=== PATIENT | female | born 1955 | race Caucasian/White ===

== ENCOUNTER 2016-02-13 10:39 | Inpatient (IN) ==
--- NOTE | 2016-02-13 11:05 | EKG Report ---
Stationary ECG Study [facility] ER Test Date: 02/13/2016 10:53:03 AM Pat Name: NOELLE CASTAÑEDA Department: Room: Gender: F Dump Worker: : [id number] Requested by: Chavez Subramanian Order Number: [id number] Reading MD: TAVO FERGUSON Intervals [place] Rate: 88 P: 38 CT: 151 QRS: 29 QRSD: 110 T: 44 QT: 379 QTc: 425 Interpretive Statements SINUS RHYTHM LOW QRS VOLTAGE IN CHEST LEADS INCOMPLETE RIGHT BUNDLE BRANCH BLOCK Electronically Signed On 02-13-16 12:36:10 SAFETY MANAGER by TAVO FERGUSON [email or web address]
[2016-02-13] MEDS ORDERED: SODIUM CHLORIDE 0.9% 500 ML IV STA (12:15)
[2016-02-13 12:35] LABS: ABG Base Excess 0.2 MMOL/L (-2.5-2.5); ABG HCO3 23.6 MMOL/L (20-26); ABG Oxygen Saturation 94.1 % (95-100); ABG PH 7.447 (7.35-7.45); ABG PO2 69.3 MM HG (80-95); ABG TCO2 24.7 MMOL/L (23-27)
--- NOTE | 2016-02-13 13:02 | CT Report ---
History: Mental status changes. Confusion. Difficulty walking. Slurred speech Date: 02/13/2016 Study: CT head without contrast Comparison exam: CT head January 21, [address] sections were obtained through the head without IV contrast. Total DLP measures 1073.1 mGy*cm. The ventricles are midline in position without evidence of hydrocephalus. There is no mass or parenchymal hemorrhage. There is no gross CT evidence of acute cortical stroke. There is no extra-axial hematoma. There is no acute abnormality of the calvarium. The partially visualized paranasal sinuses are remarkable for a small fluid level in the left sphenoid sinus. The mastoid air cells are clear. Impression: Acute left sphenoid sinusitis. No acute intracranial abnormality compared to the previous study PROCEDURE INTERPRETED AT [facility] DEPARTMENT OF RADIOLOGY Final Report Signed by: Dr. Kimberlyn Carrillo
[2016-02-13 13:12] LABS: Basophils % 0.5 % (0.0-0.8); Eosinophils # 0.3 10*3/uL (0.0-0.87); Eosinophils % 3.5 % (0.00-10.9); Hematocrit 46.9 VOL% (35.7-47.0); Hemoglobin 15.6 GM/DL (12.0-16.0); Immature Granulocytes % 0.3 %; Immature Granulocytes Absolute 0.02 #; Lymphocytes % 25.4 % (21.3-54.2); Mean Corpuscular HGB Conc 33.3 GM/DL (32-36); Mean Corpuscular Hemoglobin 29 PG (27-34); Mean Corpuscular Volume 86.9 FL (87-102); Mean Platelet Volume 11.4 FL (9.6-12.0); Monocytes # 0.6 10*3/uL (0.11-0.8); Monocytes % 7.1 % (1.7-12.7); Neutrophils % 63.2 % (38.7-73.9); Platelet Count 176 10*3/uL (130-400); Red Cell Distribution Width 13.8 % (9.3-17.3); White Blood Count 7.9 10*3/uL (4.5-13.71)
--- NOTE | 2016-02-13 13:24 | XRay Report ---
History: Confusion, weakness, slurred speech. History of hypertension and coronary artery disease Date: 02/13/2016 Study: Chest x-ray single view portable Comparison exam: Chest x-ray August 23, 2015 The cardiac silhouette is upper normal in size. The mediastinal contours are stable in this patient status post prior median sternotomy. The pulmonary vasculature is not engorged. There is no gross pleural effusion. The lungs are well expanded and generally clear. The osseous structures are unchanged. Impression: No acute cardiopulmonary process PROCEDURE INTERPRETED AT [facility] DEPARTMENT OF RADIOLOGY Final Report Signed by: Dr. Kimberlyn Carrillo
[2016-02-13 13:26] LABS: Ammonia 16 UMOL/L (11-32)
[2016-02-13 13:48] LABS: Alanine Aminotransferase 34 U/L (13-56); Albumin 3.7 G/DL (3.4-5.0); Alkaline Phosphatase 162 U/L (45-117); Aspartate Amino Transferase 26 U/L (0-37); Blood Urea Nitrogen 24 MG/DL (7-18); Calcium 8.5 MG/DL (8.5-10.1); Glucose 187 MG/DL (74-106); Magnesium 2.1 MG/DL (1.8-2.4); Osmolality,Calculated 287.4 MOS/KG (273-304); Potassium 3.4 MMOL/L (3.5-5.1); Sodium 140 MMOL/L (136-145); Total Protein 8.8 G/DL (6.4-8.3); Troponin I Only < 0.015 NG/ML (0.00-0.045)
[2016-02-13 14:03] LABS: Apearance,Urine CLEAR (Clear); Bilirubin,Urine Negative (Negative); Blood, Urine Negative (Negative); Glucose,Urine (UA) >=500 mg/dL (Negative); Ketones,Urine Negative (Negative); Nitrite,Urine Negative (Negative); Protein,Urine Negative; RBC,Urine 2 /HPF (0-4); Squamous Epithelial Cell,Urine Occasional /HPF (0-10); Urine Color Yellow (Yellow); Urine Specific Gravity 1.033 (1.001-1.035); Urine Urobilinogen < 2.0 EU/DL (0.2-1.0); WBC,Urine 12 /HPF (0-6)
[2016-02-13 14:12] LABS: Barbiturates Screen,Urine Negative (Negative); Benzodiazepines Screen,Urine Negative (Negative); Cannabinoid Screen,Urine Negative (Negative); Opiate Screen,Urine Positive (Negative); Phencyclidine Screen,Urine Negative (Negative)
--- NOTE | 2016-02-13 15:27 | Emergency Department Note ---
Shravan Cottrell Jamie, am scribing for, and in the presence of, Argelia Delcid DO 12:13. Bhavin Cottrell Catherine, DO, personally performed the services described in this documentation, ascribed by Dewey Cheney in my presence, and it is both accurate and complete [phone] . Arrival - Arrival Chief Complaint: Neuro Stated Complaint: pt can't walk, out of head, poss medication ED Nursing Triage Note: C/O HAVING CONFUSION SINCE SUNDAY., PATIENT AWAKE ALERT TO PERSON TIME AND PLACE AT TIME OF TRIAGE, FAMILY STATES SHE IS TALKING OUT OF HER HEAD, STATES SHE IS HAVING DIFFICULTY WALKING , " I CAN NOT EVEN GET OUT OF BED" , STATES SHE IS JUST NOT HER SELF, PATIENT STATES SHE HAS BEEN SLURRED SPEEECH SINCE SUNDAY., PATIENT ANSWERING ALL QUESTIONS APPR. AT TIME OF TRIAGE, AND MOVING ALL EXT WITH FULL ROM Mode of Arrival: Wheelchair Limitations: No Limitations Source: Patient, RN Notes Reviewed Time Seen by Provider: 02/13/16 11:11 - History of Present Illness HPI Narrative: Patient is a 60 y/o white female who presents to the ED c/o confusion, weakness , and slurred speech. Patient states sxs onset 4 days ago after switching medication. She reports being switched to zonisamide and states sxs have been ongoing since taking new medication. Patient reports new meds as only thing she has done differently. She also notes stuttered speech, SOB, and not being able to stand to walk. also reports episodes of incontinence. Patient has no other complaints or sxs at time of exam. her last dose of the medication was and the symptoms have not worsened - even reported she was alittle better today. She reports feeling weak whens he walks , no falls or trauma , no headache , no chest pain or emesis. reports periods of cofusion / weakness when she walks / has had some blurry vision as well - all sympotms are intermittent. Onset (ago): day(s) (4) Consistency: constant Severity: moderate Severity scale (1-10): 4 Quality: other (really unable to describe) Allergies/Adverse Reactions: Allergies Allergy/AdvReac Type Severity Reaction Status Date / Time NSAIDS (Non-Steroidal Allergy Intermediate Abdominal Verified 02/13/16 10:46 Anti-Inflamma Pain Home Medications: Home Medications Medication Instructions Recorded Confirmed Type Amitriptyline HCl 100 mg PO BEDTIME 02/13/16 02/13/16 History Canagliflozin [Invokana] 300 mg PO DAILY 02/13/16 02/13/16 History Carvedilol [Coreg] 25 mg PO BID 02/13/16 02/13/16 History Escitalopram [Lexapro] 20 mg PO DAILY 02/13/16 02/13/16 History Furosemide Tab [Lasix Tab] 40 mg PO DAILY 02/13/16 02/13/16 History Losartan Potassium 25 mg PO DAILY 02/13/16 02/13/16 History Pregabalin [Lyrica] 75 mg PO TID 02/13/16 02/13/16 History Ranitidine HCl [Zantac] 300 mg PO BEDTIME 02/13/16 02/13/16 History Rosuvastatin [Crestor] 20 mg PO DAILY 02/13/16 02/13/16 History Zonisamide 200 mg PO BEDTIME 02/13/16 02/13/16 History clonazePAM [Clonazepam] 1 mg PO BEDTIME 02/13/16 02/13/16 History hydrOXYzine HCL TAB [Atarax Tab] 50 mg PO BID 02/13/16 02/13/16 History metFORMIN [Glucophage] 500 mg PO BID W/MEALS 02/13/16 02/13/16 History Review of System - Review of System 12 point system: reviewed and no additional remarkable complaints except as stated - Review of System Constitutional: Present: weakness. Absent: chills, diaphoresis, fever Eyes: Absent: vision change Head/Ears/Nose/Throat: Absent: earache, nasal drainage, sore throat Respiratory: Absent: cough, wheezing Cardiovascular: Absent: chest pain Gastrointestinal: Absent: abdominal pain, nausea, vomiting, diarrhea, constipation Musculoskeletal: Present: other (has chronic joint pain due to fibromyalgia). Absent: joint swelling Skin: Absent: rash, change in color Neurological: Present: weakness, confusion, abnormal gait. Absent: headache, numbness, paresthesias, vertigo Psychiatric: Absent: anxiety, depression Hematological/Lymphatic: Absent: easy bleeding, easy bruising Medical,Surgical,& Family Hx - Medical History Cardio: History of: Cardiac Dysrhythmia (unknown tachycardia), CHF, CAD, Hypertension Psychological: History of: Anxiety Disorders Neurology: History of: Migraine HEENT: History of: Ear Problem (hard of hearing wears hearing aids) Endocrine: History of: Diabetes Mellitus (IDDM) (cbg 336 this am) Rheumatology: History of;: Fibromyalgia Gastrointestinal: History of: GI Problems (ulcers) Musculoskeletal: History of: Musculoskeletal Problems (kang cyst rt knee) - Surgical History Cardiac Surgeries: Sugical HX of: Cardiac Catheterization (stent in past 10 years) Abdominal Surgeries: Surgical HX of: Appendectomy Reproductive Surgeries: Surgical HX of;: Section, Hysterectomy Orthopedic Surgeries: Surgical HX of;: Orthopedic Surgery (carpal tunnel) - Family History Family History: Reports;: Family Diabetes (mother, aunts, sister), Family Heart Disease (mother (htn), grandfather ([place])) - Social History Smoking Status: Light tobacco smoker Frequency of Alcohol Use: None Type of Drug Use: None Marital Status: Lives With:: Spouse Functional capacity: independent ambulation Exam Vital Signs: Vital Signs Temperature 96.0 F L 02/13/16 11:04 Pulse Rate 86 02/13/16 13:00 Respiratory Rate 18 02/13/16 13:00 Blood Pressure 156/93 02/13/16 13:00 O2 Sat by Pulse Oximetry 98 02/13/16 13:00 - General General appearance: alert, in no apparent distress - Head Head exam: Present: atraumatic, normocephalic, normal inspection - Eye Eye exam: Present: normal appearance, PERRL, EOMI. Absent: conjunctival injection, nystagmus, periorbital tenderness - ENT ENT exam: Present: normal exam, normal oropharynx, mucous membranes moist, TM's normal bilaterally, normal external ear exam - Neck Neck exam: Present: normal inspection, full ROM. Absent: tenderness, meningismus - Chest Chest inspection: Present: normal inspection, symmetric chest wall rise - Respiratory Respiratory exam: Present: normal lung sounds bilaterally. Absent: accessory muscle use, prolonged expiratory phase, respiratory distress - Cardiovascular Cardiovascular exam: Present: regular rate, normal rhythm, normal heart sounds - Abdominal Exam Abdominal exam: Present: soft, normal bowel sounds. Absent: distention, tenderness, guarding, rebound, diminished bowel sounds - Extremities Exam Extremities exam: Present: normal inspection, full ROM - Back Exam Back exam: Present: normal inspection, full ROM - Neurological Exam Neurological exam: Present: alert, oriented X3, CN II-XII intact, other (no focal findigns on her nerology exam at this time) - Psychiatric Psychiatric exam: Present: normal affect, normal mood - Skin Skin exam: Present: warm, dry, intact, normal color Course Course Narrative: she is stable and has not worsened during the er visit - still has some slight confusion. She was able to ambulate to the rest room with assitance here. - Consultations Consultation #1: Dr. Stevens - agrees with observation for further neurology evaluation Time: 15:25 Results - Labs CBC & BMP: 02/13/16 12:52 02/13/16 12:52 Lab Results: I have reviewed the patients labs - EKG EKG results: interpreted by SHALONDA WNL - Impressions no acute findings - Diagnostic Findings Procedure: CT - chest: report reviewed by me (negative), CT: report reviewed by me (head-sinusitis - no acute process) Disposition Clinical Impression: Altered mental status, unspecified, Adverse drug reaction Case discussed with: patient Disposition: Still a Patient Condition: Stable
--- NOTE | 2016-02-13 15:37 | Hospitalist History & Physical ---
Assessment and Plan (1) Altered mental status, unspecified Status: Acute Assessment and plan: Most probably a medication side effect from the zonisamide, which I will discontinue. She will be seen by Neurology tomorrow. Current Visit: Yes (2) Adverse drug reaction Status: Acute Assessment and plan: See above Current Visit: Yes (3) Diabetes mellitus type 1 Status: Acute Assessment and plan: Continue her glargine. Accuchecks with SSI coverage. Current Visit: Yes Qualifiers: Diabetes mellitus complication status: without complication Qualified Code( s): E10.9 - Type 1 diabetes mellitus without complications (4) Sinusitis, acute, sphenoidal Status: Acute Assessment and plan: Start cephalexin. Current Visit: Yes (5) Coronary artery disease Status: Chronic Assessment and plan: She is s/p CABG in August,, Continue present medications. Current Visit: No Qualifiers: Coronary Disease-Associated Artery/Lesion type: [place] artery [place] vs. transplanted heart: [place] heart Associated angina: without angina Qualified Code(s): I25.10 - Atherosclerotic heart disease of [place] coronary artery without angina pectoris (6) Fibromyalgia Status: Chronic Assessment and plan: Stable Current Visit: No (7) Hypertension Status: Chronic Assessment and plan: Stable Current Visit: No Qualifiers: Hypertension type: essential hypertension Qualified Code(s): I10 - Essential (primary) hypertension History of Present Illness Chief complaint: Confusion and weakness History of present illness: Ms. Herrera is a 60 year old female with multiple medical problems incuding fibromyalgia, headaches, Type 2 Diabetes Mellitus, CAD s/p CABG surgery. She was begun one week ago on zonisamide for her headcahes. 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 She has not been experiencing chest pain, dyspnea, cough, fever, shaking chills, or seizures. In the ED, she underwent a CT scan of the head showing acute sphenoid sinusitis and no intracranial abnormalities. Home Medications Medication Instructions Recorded Confirmed Type Amitriptyline HCl 100 mg PO BEDTIME 02/13/16 02/13/16 History Canagliflozin [Invokana] 300 mg PO DAILY 02/13/16 02/13/16 History Carvedilol [Coreg] 25 mg PO BID 02/13/16 02/13/16 History Escitalopram [Lexapro] 20 mg PO DAILY 02/13/16 02/13/16 History Furosemide Tab [Lasix Tab] 40 mg PO DAILY 02/13/16 02/13/16 History Losartan Potassium 25 mg PO DAILY 02/13/16 02/13/16 History Pregabalin [Lyrica] 75 mg PO TID 02/13/16 02/13/16 History Ranitidine HCl [Zantac] 300 mg PO BEDTIME 02/13/16 02/13/16 History Rosuvastatin [Crestor] 20 mg PO DAILY 02/13/16 02/13/16 History Zonisamide 200 mg PO BEDTIME 02/13/16 02/13/16 History clonazePAM [Clonazepam] 1 mg PO BEDTIME 02/13/16 02/13/16 History hydrOXYzine HCL TAB [Atarax Tab] 50 mg PO BID 02/13/16 02/13/16 History metFORMIN [Glucophage] 500 mg PO BID W/MEALS 02/13/16 02/13/16 History Allergies Allergy/AdvReac Type Severity Reaction Status Date / Time NSAIDS (Non-Steroidal Allergy Intermediate Abdominal Verified 02/13/16 10:46 Anti-Inflamma Pain Medical,Surgical,& Family Hx - Medical History Cardio: History of: Cardiac Dysrhythmia (unknown tachycardia), CHF, CAD, Hypertension Psychological: History of: Anxiety Disorders Neurology: History of: Migraine HEENT: History of: Ear Problem (hard of hearing wears hearing aids) Endocrine: History of: Diabetes Mellitus (IDDM) (cbg 336 this am) Rheumatology: History of;: Fibromyalgia Gastrointestinal: History of: GI Problems (ulcers) Musculoskeletal: History of: Musculoskeletal Problems (kang cyst rt knee) - Surgical History Cardiac Surgeries: Sugical HX of: Cardiac Catheterization (stent in past 10 years) Abdominal Surgeries: Surgical HX of: Appendectomy Reproductive Surgeries: Surgical HX of;: Section, Hysterectomy Orthopedic Surgeries: Surgical HX of;: Orthopedic Surgery (carpal tunnel) - Family History Family History: Reports;: Family Diabetes (mother, aunts, sister), Family Heart Disease (mother (htn), grandfather ([place])) - Social History Smoking Status: Light tobacco smoker Frequency of Alcohol Use: None Type of Drug Use: None Marital Status: Lives With:: Spouse Functional capacity: independent ambulation 12 point system: reviewed and no additional remarkable complaints except as stated Exam - Constitutional Vitals: Period Temp Pulse Resp BP Sys/Elizabeth Pulse Ox Last 24 Hr 96.0 F-96.0 F 86-90 16-18 124-162/77-98 96-100 General appearance: no acute distress, over weight - Head Head exam: Present: normal inspection, normocephalic - Eye Pupils: Present: JACINDA - Neck Neck exam: Present: normal inspection - Respiratory Respiratory exam: Present: clear to auscultation bilaterally - Cardiovascular Cardiovascular exam: Present: regular rate and rhythm - GI/Abdominal GI/Abdominal exam: Present: normal bowel sounds, soft, other (nontender) - Extremities Exam Extremities exam: Present: normal inspection - Neurological Exam Neurological exam: Present: alert, oriented X3, CN II-XII intact, other (no gross motor or sensory deficits) - Psychiatric Psychiatric exam: Present: normal affect, normal mood - Skin Skin exam: Present: normal color Results - Labs CBC & BMP: 02/13/16 12:52 02/13/16 12:52
[2016-02-13] MEDS ORDERED: ONDANSETRON 4 MG/2 ML VIAL IV PRN (15:47)
[2016-02-13] MEDS ORDERED: BISACODYL 5 MG TABLET PO PRN (15:47)
[2016-02-13] MEDS ORDERED: GLUCAGON 1 MG VIAL IM PRN (15:47)
[2016-02-13] MEDS ORDERED: DEXTROSE 50% 25 GM/50 ML VIAL IV PRN (15:47)
[2016-02-13] MEDS ORDERED: traZODone 50 MG TABLET PO PRN (15:47)
[2016-02-13] MEDS: INSULIN REGULAR 100 UNIT/ML SUBCUT SCH ×3 (18:15→21:46)
[2016-02-13] MEDS: metFORMIN 500 MG TABLET PO SCH (18:18)
[2016-02-13] MEDS: cephALEXin 500 MG CAPSULE PO SCH (18:18)
[2016-02-13] MEDS: ENOXAPARIN 40 MG/0.4 ML SYRINGE SUBCUT SCH (18:19)
[2016-02-13] MEDS: AMITRIPTYLINE 100 MG TABLET PO SCH (21:46)
[2016-02-13] MEDS: hydrOXYzine HCL 25 MG TABLET PO SCH (21:46)
[2016-02-13] MEDS: CARVEDILOL 25 MG TABLET PO SCH (21:46)
[2016-02-13] MEDS: clonazePAM 0.5 MG TABLET PO SCH (21:47)
[2016-02-13] MEDS: INSULIN GLARGINE 100 UNIT/ML SUBCUT SCH (21:48)
[2016-02-13] MEDS: FAMOTIDINE 20 MG TABLET PO SCH (21:48)
[2016-02-13] MEDS: ZONISAMIDE 100 MG CAPSULE PO SCH ×2 (21:49→21:54)
[2016-02-13] MEDS: PREGABALIN 75 MG CAPSULE PO SCH (21:49)
[2016-02-14] MEDS: cephALEXin 500 MG CAPSULE PO SCH ×4 (03:12→17:16)
[2016-02-14] MEDS ORDERED: NON-FORMULARY MEDICATION (Canagliflozin [Invokana] 300 MG) PO SCH (09:00)
--- NOTE | 2016-02-14 09:20 | Hospitalist Progress Note ---
Assessment and Plan (1) Altered mental status, unspecified Status: Acute Assessment and plan: Most probably a medication side effect from the zonisamide, which has been discontinued. She will be seen by Neurology today. Current Visit: Yes (2) Adverse drug reaction Status: Acute Assessment and plan: See above Current Visit: Yes (3) Diabetes mellitus type 1 Status: Acute Assessment and plan: Continue her glargine. Accuchecks with SSI coverage. Current Visit: Yes Qualifiers: Diabetes mellitus complication status: without complication Qualified Code( s): E10.9 - Type 1 diabetes mellitus without complications (4) Sinusitis, acute, sphenoidal Status: Acute Assessment and plan: She is being treated with cephalexin 500 mg PO Q6H. Current Visit: Yes (5) Coronary artery disease Status: Chronic Assessment and plan: She is s/p CABG in August,, Continue present medications. Current Visit: No Qualifiers: Coronary Disease-Associated Artery/Lesion type: [place] artery [place] vs. transplanted heart: [place] heart Associated angina: without angina Qualified Code(s): I25.10 - Atherosclerotic heart disease of [place] coronary artery without angina pectoris (6) Fibromyalgia Status: Chronic Assessment and plan: Stable Current Visit: No (7) Hypertension Status: Chronic Assessment and plan: Stable. BP 118/76. Current Visit: No Qualifiers: Hypertension type: essential hypertension Qualified Code(s): I10 - Essential (primary) hypertension Hospitalist: Subjective Interval history: She has been taking her own amitryptiline in addition to the prescribed medication dispensed by the nurses. I strongly admonished her and her not to do so. Exam - Constitutional Vitals: Period Temp Pulse Resp BP Sys/Elizabeth Pulse Ox Last 24 Hr 97.4 F-99.4 F 86-132 18-24 84-154/54-89 95-100 General appearance: no acute distress - Head Head exam: Present: normal inspection - Neck Neck exam: Present: normal inspection - Respiratory Respiratory exam: Present: clear to auscultation bilaterally - Cardiovascular Cardiovascular exam: Present: regular rate and rhythm - GI/Abdominal GI/Abdominal exam: Present: normal bowel sounds, soft, other (nontender) - Extremities Exam Extremities exam: Present: normal inspection - Neurological Exam Neurological exam: Present: alert, oriented X3 - Psychiatric Psychiatric exam: Present: normal affect - Skin Skin exam: Present: normal color Results - Labs CBC & BMP: 02/13/16 12:52 02/13/16 12:52 Specialty Discharge - Follow Up or Referrals - Discharge Medications No Action Rosuvastatin [Crestor] 20 mg PO DAILY Pregabalin [Lyrica] 75 mg PO TID clonazePAM [Clonazepam] 1 mg PO BEDTIME Furosemide Tab [Lasix Tab] 40 mg PO DAILY Carvedilol [Coreg] 25 mg PO BID Ranitidine HCl [Zantac] 300 mg PO BEDTIME Canagliflozin [Invokana] 300 mg PO DAILY Zonisamide 200 mg PO BEDTIME Losartan Potassium 25 mg PO DAILY HYDROcodone/ACETAMIN 10-325 [[place] 10-325] 1 tablet PO Q6H PRN PRN Reason: Pain Insulin Glargine [Lantus] 80 unit SUBCUT BEDTIME hydrOXYzine HCL TAB [Atarax Tab] 50 mg PO BID metFORMIN [Glucophage] 500 mg PO BID W/MEALS Amitriptyline HCl 100 mg PO BEDTIME Escitalopram [Lexapro] 20 mg PO DAILY Insulin Regular [HumuLIN R] 10 unit SUBCUT TID W/MEALS
[2016-02-14] MEDS: INSULIN REGULAR 100 UNIT/ML SUBCUT SCH ×7 (09:53→21:33)
[2016-02-14] MEDS: FUROSEMIDE 40 MG TABLET PO SCH (09:56)
[2016-02-14] MEDS: hydrOXYzine HCL 25 MG TABLET PO SCH ×2 (09:56→21:31)
[2016-02-14] MEDS: LOSARTAN 25 MG TABLET PO SCH (09:56)
[2016-02-14] MEDS: ESCITALOPRAM 10 MG TABLET PO SCH (09:56)
[2016-02-14] MEDS: ROSUVASTATIN 20 MG TABLET PO SCH (09:56)
[2016-02-14] MEDS: metFORMIN 500 MG TABLET PO SCH ×2 (09:56→16:22)
[2016-02-14] MEDS: CARVEDILOL 25 MG TABLET PO SCH ×2 (09:57→21:32)
[2016-02-14] MEDS: PREGABALIN 75 MG CAPSULE PO SCH ×3 (09:57→21:51)
[2016-02-14] MEDS: PANTOPRAZOLE 40 MG TABLET PO SCH (09:57)
--- NOTE | 2016-02-14 14:28 | Magnetic Resonance Report ---
Exam: MR head/brain wo con Date: 02/14/2016 11:46 AM Comparison: 12/24/2010, CT brain 02/13/2016 Indication: Alteration of consciousness Technique: Multiple acquisitions were obtained including sagittal T1, coronal T2, and axial ADC, diffusion, FLAIR, T2, GRE, and T1 scans without contrast only. Scans were obtained on an open 1.2 Michela magnet. Findings: The ventricles are normal in size with no midline displacement. The pituitary has a normal appearance and the cerebellar tonsils are normal in their location. No acute infarction on the diffusion scans. No evidence of hemorrhage, mass, or extracerebral collection. Enlarged perivascular spaces are noted which represent a normal variant. Minimal cerebral atrophy. Small air-fluid level in the left sphenoid sinus with 12 mm retention cyst in the floor the left maxillary sinus. No acute findings in the orbits, temporal bones, or [place] of [place]. Impression: No acute intracranial pathology identified. Minimal atrophy. Enlarged perivascular spaces which represent a normal variant. Minimal sinusitis. PROCEDURE INTERPRETED AT [facility] DEPARTMENT OF RADIOLOGY Final Report Signed by: Dr. Bonny Cooper
--- NOTE | 2016-02-14 15:48 | Neurology Consult Note ---
History of Present Illness History of present illness: Ms. Herrera is a 60 year old right-handed white lady with past medical history significant for multiple medical problems incuding fibromyalgia, chronic migraine headaches, Type 2 Diabetes Mellitus, CAD s/p CABG surgery. She was begun one week ago on zonisamide for her headcahes prevention. 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 She has not been experiencing chest pain, dyspnea, cough, fever, shaking chills, or seizures. In the ED, she underwent a CT scan of the head showing acute sphenoid sinusitis and no intracranial abnormalities. Zonegran has been stopped and she seems to be doing much better. Home Medications Medication Instructions Recorded Confirmed Type Amitriptyline HCl 100 mg PO BEDTIME 02/13/16 02/13/16 History Canagliflozin [Invokana] 300 mg PO DAILY 02/13/16 02/13/16 History Carvedilol [Coreg] 25 mg PO BID 02/13/16 02/13/16 History Escitalopram [Lexapro] 20 mg PO DAILY 02/13/16 02/13/16 History Furosemide Tab [Lasix Tab] 40 mg PO DAILY 02/13/16 02/13/16 History HYDROcodone/ACETAMIN 10-325 [[place] 1 tablet PO Q6H PRN 02/13/16 02/13/16 History 10-325] Insulin Glargine [Lantus] 80 unit SUBCUT BEDTIME 02/13/16 02/13/16 History Insulin Regular [HumuLIN R] 10 unit SUBCUT TID W/MEALS 02/13/16 02/13/16 History Losartan Potassium 25 mg PO DAILY 02/13/16 02/13/16 History Pregabalin [Lyrica] 75 mg PO TID 02/13/16 02/13/16 History Ranitidine HCl [Zantac] 300 mg PO BEDTIME 02/13/16 02/13/16 History Rosuvastatin [Crestor] 20 mg PO DAILY 02/13/16 02/13/16 History Zonisamide 200 mg PO BEDTIME 02/13/16 02/13/16 History clonazePAM [Clonazepam] 1 mg PO BEDTIME 02/13/16 02/13/16 History hydrOXYzine HCL TAB [Atarax Tab] 50 mg PO BID 02/13/16 02/13/16 History metFORMIN [Glucophage] 500 mg PO BID W/MEALS 02/13/16 02/13/16 History Allergies Allergy/AdvReac Type Severity Reaction Status Date / Time NSAIDS (Non-Steroidal Allergy Intermediate Abdominal Verified 02/13/16 10:46 Anti-Inflamma Pain 12 point system: reviewed and no additional remarkable complaints except as stated Medical,Surgical,& Family Hx - Medical History Cardio: History of: Cardiac Dysrhythmia (unknown tachycardia), CHF, CAD, Hypertension Psychological: History of: Anxiety Disorders Neurology: History of: Migraine HEENT: History of: Ear Problem (hard of hearing wears hearing aids) Endocrine: History of: Diabetes Mellitus (IDDM) (cbg 336 this am) Rheumatology: History of;: Fibromyalgia Gastrointestinal: History of: GI Problems (ulcers) Musculoskeletal: History of: Musculoskeletal Problems (kang cyst rt knee) - Surgical History Cardiac Surgeries: Sugical HX of: Cardiac Catheterization (stent in past 10 years) Abdominal Surgeries: Surgical HX of: Appendectomy Reproductive Surgeries: Surgical HX of;: Section, Hysterectomy Orthopedic Surgeries: Surgical HX of;: Orthopedic Surgery (carpal tunnel) - Family History Family History: Reports;: Family Diabetes (mother, aunts, sister), Family Heart Disease (mother (htn), grandfather ([place])) - Social History Smoking Status: Light tobacco smoker Frequency of Alcohol Use: None Type of Drug Use: None Exam - Constitutional Vitals: Period Temp Pulse Resp BP Sys/Elizabeth Pulse Ox Last 24 Hr 97.4 F-99.4 F 84-132 18-24 84-154/54-89 95-100 Exam: GENERAL: Patient is in no acute distress. NECK: Neck is supple. There is no JVD. No carotid bruits present. No thyroid masses. CVS: First and second heart sounds are normal. There is no S3 present. Regular rate and rhythm. RESPIRATORY: Lungs are clear to auscultation without any rales or rhonchi. ABDOMEN: Soft and non-tender. Bowel sounds are present. There is no hepatosplenomegaly. EXT: There is no palpable edema. Peripheral pulses are present. Skin: No rashes Central Nervous system: General: Alert, awake and Oriented x 3 Speech: Fluent Comprehension: Intact and normal Facial expressions: Normal Cranial Nerves: CN1/Olfactory: Normal CN II/ Optic: Normal, Visual Mahmood unreliable CN III, and : JACINDA & EOMI CN V: Normal & intact CN VII: face is symmetric CNVIII: Normal CN XI/X/XI/XII: Intact and Normal Motor: Bulk and Tone is normal. Strength in the right 5/5 Strength in the left 5/5 Sensory: Grossly intact for all the modalities of PP, LT and temp sense Reflexes: 1+ and symmetrical Cerebellar function: Normal finger to nose and heel to gamez testing. Gait: Normal heel to heel and toe to toe and tandem walk. Results - Labs CBC & BMP: 02/13/16 12:52 02/13/16 12:52 Assessment and Plan (1) Chronic migraine Status: Acute Assessment and plan: Agree to discontinue Zonegran Trial of Depakote ER 250 mg daily Advised to see Dr. Rain in [place] in 1-2 weeks Okay to go home from neuro standpoint Thank you for the consult Current Visit: Yes Specialty Discharge - Follow Up or Referrals - Discharge Medications No Action Rosuvastatin [Crestor] 20 mg PO DAILY Pregabalin [Lyrica] 75 mg PO TID clonazePAM [Clonazepam] 1 mg PO BEDTIME Furosemide Tab [Lasix Tab] 40 mg PO DAILY Carvedilol [Coreg] 25 mg PO BID Ranitidine HCl [Zantac] 300 mg PO BEDTIME Canagliflozin [Invokana] 300 mg PO DAILY Zonisamide 200 mg PO BEDTIME Losartan Potassium 25 mg PO DAILY HYDROcodone/ACETAMIN 10-325 [[place] 10-325] 1 tablet PO Q6H PRN PRN Reason: Pain Insulin Glargine [Lantus] 80 unit SUBCUT BEDTIME hydrOXYzine HCL TAB [Atarax Tab] 50 mg PO BID metFORMIN [Glucophage] 500 mg PO BID W/MEALS Amitriptyline HCl 100 mg PO BEDTIME Escitalopram [Lexapro] 20 mg PO DAILY Insulin Regular [HumuLIN R] 10 unit SUBCUT TID W/MEALS
[2016-02-14] MEDS: FAMOTIDINE 20 MG TABLET PO SCH (21:32)
[2016-02-14] MEDS: ENOXAPARIN 40 MG/0.4 ML SYRINGE SUBCUT SCH (21:32)
[2016-02-14] MEDS: clonazePAM 0.5 MG TABLET PO SCH (21:33)
[2016-02-14] MEDS: INSULIN GLARGINE 100 UNIT/ML SUBCUT SCH (21:34)
[2016-02-14] MEDS: AMITRIPTYLINE 100 MG TABLET PO SCH (21:51)
[2016-02-14] MEDS: ZONISAMIDE 100 MG CAPSULE PO SCH (21:54)
[2016-02-15] MEDS: cephALEXin 500 MG CAPSULE PO SCH ×2 (01:47→06:34)
[2016-02-15 08:42] VITALS: BP 154/77
--- NOTE | 2016-02-15 09:11 | Discharge Summary ---
Hospital Course - Hospital Course Hospital Course: Ms. Herrera was hospitalized with an adverse reaction to zonisamide, which had been prescribed for migraine headaches. At the time of admission, she was very weak and unsteady. She was seen in consultation by Dr. Chowdhury of Neurology. The medication was stopped. CT scan and MRI of the brain showed no acute abnormalities. She was found to have a UTI for which she was treated with cephalexin. At the time of discharge, she felt much better and was eager to go home. Diagnosis - Discharge Diagnosis (1) Altered mental status, unspecified Status: Acute (2) Adverse drug reaction Status: Acute (3) Diabetes mellitus type 1 Status: Acute (4) Sinusitis, acute, sphenoidal Status: Acute (5) Coronary artery disease Status: Chronic (6) Fibromyalgia Status: Chronic (7) Hypertension Status: Chronic Specialty Discharge - Follow Up or Referrals - Discharge Medications No Action Rosuvastatin [Crestor] 20 mg PO DAILY Pregabalin [Lyrica] 75 mg PO TID clonazePAM [Clonazepam] 1 mg PO BEDTIME Furosemide Tab [Lasix Tab] 40 mg PO DAILY Carvedilol [Coreg] 25 mg PO BID Ranitidine HCl [Zantac] 300 mg PO BEDTIME Canagliflozin [Invokana] 300 mg PO DAILY Zonisamide 200 mg PO BEDTIME Losartan Potassium 25 mg PO DAILY HYDROcodone/ACETAMIN 10-325 [[place] 10-325] 1 tablet PO Q6H PRN PRN Reason: Pain Insulin Glargine [Lantus] 80 unit SUBCUT BEDTIME hydrOXYzine HCL TAB [Atarax Tab] 50 mg PO BID metFORMIN [Glucophage] 500 mg PO BID W/MEALS Amitriptyline HCl 100 mg PO BEDTIME Escitalopram [Lexapro] 20 mg PO DAILY Insulin Regular [HumuLIN R] 10 unit SUBCUT TID W/MEALS Discharge Plan - Discharge Data Condition at Discharge: Stable Discharge Diet: advance to your usual diet Activity: resume usual activities as tolerated Hygiene: no restrictions - Discharge Medications New cephALEXin [Keflex] 500 mg PO Q6HR #16 capsule Continue Rosuvastatin [Crestor] 20 mg PO DAILY Pregabalin [Lyrica] 75 mg PO TID clonazePAM [Clonazepam] 1 mg PO BEDTIME Furosemide Tab [Lasix Tab] 40 mg PO DAILY Carvedilol [Coreg] 25 mg PO BID Ranitidine HCl [Zantac Tab] 300 mg PO BEDTIME Canagliflozin [Invokana] 300 mg PO DAILY Losartan Potassium 25 mg PO DAILY HYDROcodone/ACETAMIN 10-325 [[place] 10-325] 1 tablet PO Q6H PRN PRN Reason: Pain Insulin Glargine [Lantus] 80 unit SUBCUT BEDTIME hydrOXYzine HCL TAB [Atarax Tab] 50 mg PO BID metFORMIN [Glucophage] 500 mg PO BID W/MEALS Amitriptyline HCl 100 mg PO BEDTIME Escitalopram [Lexapro] 20 mg PO DAILY Insulin Regular [HumuLIN R] 10 unit SUBCUT TID W/MEALS Discontinued Zonisamide 200 mg PO BEDTIME - Follow Up or Referral - Forms/Instructions Exam - Constitutional Vitals: Period Temp Pulse Resp BP Sys/Elizabeth Pulse Ox Last 24 Hr 98.1 F-98.7 F 79-90 20-20 104-154/53-77 92-97 General appearance: no acute distress - Head Head exam: Present: normal inspection - Neck Neck exam: Present: normal inspection - Respiratory Respiratory exam: Present: clear to auscultation bilaterally - Cardiovascular Cardiovascular exam: Present: regular rate and rhythm - GI/Abdominal GI/Abdominal exam: Present: normal bowel sounds, soft, other (nontender) - Extremities Exam Extremities exam: Present: normal inspection - Skin Skin exam: Present: normal color Discharge Results Labs on day of discharge: Labs from last 24 hours 02/15/16 02/14/16 02/14/16 07:23 18:10 15:11 POC Glucose 150 H 191 H 219 H 02/14/16 11:22 POC Glucose 235 H DS: Provider Date of admission: 02/13/16 15:54 Primary care physician: Alex Leavitt Attending physician on admission: Guido Monte Consults: 02/13/16 17:18 Consult to Pharmacy [CONS] Routine Reason for Pharmacy Consult: Adjust Meds Renal Funct Discharging clinician: Guido Monte Expected date of discharge: 02/15/16
[2016-02-15] MEDS: INSULIN REGULAR 100 UNIT/ML SUBCUT SCH ×2 (09:26)
[2016-02-15] MEDS: LOSARTAN 25 MG TABLET PO SCH (09:30)
[2016-02-15] MEDS: metFORMIN 500 MG TABLET PO SCH (09:30)
[2016-02-15] MEDS: ESCITALOPRAM 10 MG TABLET PO SCH (09:30)
[2016-02-15] MEDS: PREGABALIN 75 MG CAPSULE PO SCH (09:30)
[2016-02-15] MEDS: CARVEDILOL 25 MG TABLET PO SCH (09:30)
[2016-02-15] MEDS: PANTOPRAZOLE 40 MG TABLET PO SCH (09:31)
[2016-02-15] MEDS: ROSUVASTATIN 20 MG TABLET PO SCH (09:31)
[2016-02-15] MEDS: FUROSEMIDE 40 MG TABLET PO SCH (09:31)
[2016-02-15] MEDS: hydrOXYzine HCL 25 MG TABLET PO SCH (09:31)
== END 2016-02-15 10:22 | disposition home or self-care (01) | DRG 948 ==
LOC: N.ED 10:39 → N.EDINP 15:54 → N.2E 16:59

== ENCOUNTER 2016-06-27 19:02 | Observation (INO) ==
[2016-06-27] MEDS ORDERED: SODIUM CHLORIDE 0.9% 500 ML IV STA (19:55)
[2016-06-27] MEDS ORDERED: ONDANSETRON 4 MG/2 ML VIAL IV STA (19:55)
[2016-06-27] MEDS ORDERED: HYDROmorphone 2 MG/1 ML VIAL IV STA (19:55)
[2016-06-27] MEDS ORDERED: HYDROmorphone 2 MG/1 ML VIAL ONE (20:03)
[2016-06-27] MEDS ORDERED: ONDANSETRON 4 MG/2 ML VIAL ONE (20:03)
[2016-06-27 20:05] LABS: Basophils # 0.1 10*3/uL (0.0-0.2); Basophils % 0.9 % (0.0-0.8); Eosinophils # 0.3 10*3/uL (0.0-0.87); Eosinophils % 3.3 % (0.00-10.9); Hematocrit 43.1 VOL% (35.7-47.0); Hemoglobin 14.7 GM/DL (12.0-16.0); Immature Granulocytes % 0.5 %; Immature Granulocytes Absolute 0.04 #; Lymphocytes # 3.2 10*3/uL (1.4-4.0); Lymphocytes % 38.9 % (21.3-54.2); Mean Corpuscular HGB Conc 34.1 GM/DL (32-36); Mean Corpuscular Hemoglobin 29 PG (27-34); Mean Corpuscular Volume 86.2 FL (87-102); Mean Platelet Volume 12.2 FL (9.6-12.0); Monocytes # 1.1 10*3/uL (0.11-0.8); Monocytes % 12.9 % (1.7-12.7); Neutrophils # 3.6 10*3/uL (1.4-7.4); Neutrophils % 43.5 % (38.7-73.9); Platelet Count 196 T/CUMM (130-400); Red Cell Distribution Width 14.2 % (9.3-17.3); White Blood Count 8.2 T/CUMM (4-12)
--- NOTE | 2016-06-27 20:25 | Emergency Department Note ---
Luis Felipe Cottrell Manpreet, am scribing for, and in the presence of, Chavez De Luna MD 19:59. Annamarie Cottrell Charles R, MD, personally performed the services described in this documentation, ascribed by Jose Guadalupe Briscoe in my presence, and it is both accurate and complete . Arrival - Arrival Chief Complaint: Abdominal / Flank Pain Stated Complaint: Pain in right lower back ED Nursing Triage Note: C/O Right flank pain. Onset this morning upon waking. Reports taking her prescribed pain meds that she uses for fibromyalgia without any relief in the flank pain. Pt denies urinary s/s. Pt states that she has had this kind of pain before and it was pyelonephritis. Denies fever. Mode of Arrival: Ambulatory Limitations: No Limitations Source: Patient Time Seen by Provider: 06/27/16 19:28 - History of Present Illness HPI Narrative: Pt is a 60 y/o female, with PMHx of IDDM, HTN, CHF, CAD, and cardiac catheterization, who presents to the ED with CC of bilateral flank pain that started this morning when she woke up. Pt reports of more pain on the right side and dysuria, but denies any recent constipation. This pain is similar to a previous episode of pain in her flanks and was told of having infection of the kidney. Dr. Alex Leavitt is her PCP and Dr. Duarte is her finance professional. Pt also reports of elevated sugar levels recently due to her diet. No other pains/ complaints reported to ED. Onset (ago): hour(s) Consistency: constant Severity: moderate Severity scale (1-10): 4 Quality: cramping Date of Last Menstrual Period: Hysterectomy Allergies/Adverse Reactions: Allergies Allergy/AdvReac Type Severity Reaction Status Date / Time NSAIDS (Non-Steroidal Allergy Intermediate Abdominal Verified 02/13/16 10:46 Anti-Inflamma Pain Home Medications: Home Medications Medication Instructions Recorded Confirmed Type Amitriptyline HCl 100 mg PO BEDTIME 02/13/16 06/27/16 History Canagliflozin [Invokana] 300 mg PO DAILY 02/13/16 06/27/16 History Carvedilol [Coreg] 25 mg PO BID 02/13/16 06/27/16 History Furosemide Tab [Lasix Tab] 40 mg PO DAILY 02/13/16 06/27/16 History HYDROcodone/ACETAMIN 10-325 [[place] 1 tablet PO QID PRN 02/13/16 06/27/16 History 10-325] Insulin Glargine [Lantus] 80 unit SUBCUT BEDTIME 02/13/16 06/27/16 History Insulin Regular [HumuLIN R] 10 unit SUBCUT TID W/MEALS 02/13/16 06/27/16 History Losartan Potassium 25 mg PO DAILY 02/13/16 06/27/16 History Pregabalin [Lyrica] 75 mg PO TID 02/13/16 06/27/16 History Rosuvastatin [Crestor] 20 mg PO DAILY 02/13/16 06/27/16 History clonazePAM [Clonazepam] 1 mg PO BEDTIME 02/13/16 06/27/16 History metFORMIN [Glucophage] 500 mg PO BID W/MEALS 02/13/16 06/27/16 History raNITIdine HCl [Zantac Tab] 300 mg PO BEDTIME PRN 02/13/16 06/27/16 History Aspirin EC Tab 325 mg PO BEDTIME 06/27/16 06/27/16 History Desvenlafaxine Succinate [Pristiq 25 mg PO QAM 06/27/16 06/27/16 History ER] Review of System - Review of System 12 point system: reviewed and no additional remarkable complaints except as stated - Review of System Constitutional: Absent: chills, diaphoresis, fever, weakness Respiratory: Absent: cough, respiratory distress Cardiovascular: Absent: chest pain Gastrointestinal: Absent: abdominal pain, nausea, vomiting, constipation Genitourinary female: Present: dysuria Musculoskeletal: Present: back pain Medical,Surgical,& Family Hx - Medical History Cardio: History of: Cardiac Dysrhythmia (unknown tachycardia), CHF, CAD, Hypertension Psychological: History of: Anxiety Disorders Neurology: History of: Migraine HEENT: History of: Ear Problem (hard of hearing wears hearing aids) Endocrine: History of: Diabetes Mellitus (IDDM) (cbg 336 this am) Rheumatology: History of;: Fibromyalgia Gastrointestinal: History of: GI Problems (ulcers) Musculoskeletal: History of: Musculoskeletal Problems (kang cyst rt knee) - Surgical History Cardiac Surgeries: Sugical HX of: Cardiac Catheterization (stent in past 10 years) Abdominal Surgeries: Surgical HX of: Appendectomy Reproductive Surgeries: Surgical HX of;: Section, Hysterectomy Orthopedic Surgeries: Surgical HX of;: Orthopedic Surgery (carpal tunnel) - Family History Family History: Reports;: Family Diabetes (mother, aunts, sister), Family Heart Disease (mother (htn), grandfather (MD)) - Social History Smoking Status: Former smoker Frequency of Alcohol Use: None Type of Drug Use: None Exam Vital Signs: Vital Signs Temperature 98.4 F 06/27/16 19:18 Pulse Rate 98 H 06/27/16 19:18 Respiratory Rate 20 06/27/16 19:18 Blood Pressure 115/77 06/27/16 19:18 O2 Sat by Pulse Oximetry 95 06/27/16 19:10 - General General appearance: alert, in no apparent distress - Head Head exam: Present: atraumatic, normocephalic, normal inspection - Eye Eye exam: Present: normal appearance, PERRL, EOMI - ENT ENT exam: Present: normal exam, normal oropharynx, mucous membranes moist, TM's normal bilaterally - Neck Neck exam: Present: normal inspection, full ROM, trachea midline. Absent: tenderness, thyromegaly - Chest Chest inspection: Present: normal inspection, symmetric chest wall rise. Absent : tenderness - Respiratory Respiratory exam: Present: normal lung sounds bilaterally. Absent: accessory muscle use, respiratory distress - Cardiovascular Cardiovascular exam: Present: regular rate, normal rhythm, normal heart sounds. Absent: murmur, rubs, gallop - Abdominal Exam Abdominal exam: Present: soft, normal bowel sounds. Absent: distention, tenderness, guarding - Extremities Exam Extremities exam: Present: normal inspection, full ROM. Absent: tenderness - Back Exam Back exam: Present: full ROM. Absent: normal inspection, tenderness - Neurological Exam Neurological exam: Present: alert, oriented X3, CN II-XII intact, reflexes normal - Psychiatric Psychiatric exam: Present: normal affect, normal mood - Skin Skin exam: Present: warm, dry, intact, normal color. Absent: pallor Course - Reevaluation(s) Reevaluation #1: Discussed results with patient. She has CT scan is worrisome because she has increased in size and her pulmonary nodules from previous comparison exam. Also she has the same lymph nodes in her abdomen pelvis which have now also increased in size. She does have history cancer in the family this also worrisome for neoplastic process we discussed different options and she still feeling sick still having flank pain with his unknown entities and have urinary tract infection placed from the hospital for appropriate workup Time: 21:24 - Consultations Consultation #1: Hospitalist will admit patient Time: 21:32 Results - Labs CBC & BMP: 06/27/16 19:29 06/27/16 19:29 Lab Results: I have reviewed the patients labs Labs: Laboratory Tests 06/27/16 19:29 WBC 8.2 RBC 5.00 Hgb 14.7 Hct 43.1 MCV 86.2 L MPV 12.2 H [place] % (Auto) 12.9 H Baso % (Auto) 0.9 H [place] # (Auto) 1.1 H Laboratory Tests 06/27/16 06/27/16 19:29 19:29 Sodium 137 Potassium 4.2 Chloride 101 Carbon Dioxide 25 Anion Gap 15.2 H BUN 22 H BUN/Creatinine Ratio 24.00 H Glucose 249 H AST 71 H Alkaline Phosphatase 152 H Total Protein 8.4 H Globulin 4.9 H Albumin/Globulin Ratio 0.7 L Lipase 542.0 H Urine pH 5.0 Ur Specific [place] 1.031 Urine Glucose (UA) >=500 Urine Urobilinogen < 2.0 H Urine Leukocytes Moderate H Urine RBC 4 Urine WBC 27 - Diagnostic Findings Procedure: Abdominal x-ray: report reviewed by me (1. No significant interval change has occurred in the few minutes since CT was performed. Please see report from CT for findings.), Chest x-ray: report reviewed by me (1. New pulmonary nodule lateral aspect of mid left lung is suggested. This combined with enlarging pulmonary nodules within the lower lungs as detalied on CT performed same date could reflect neoplastic process.), CT Abdomen and Pelvis: report reviewed by me (1. No specific etiology of abdominal or pelvic pain is demonstrated. 2. Pulmonary nodules have increased in size since comparison study. Neoplastic process cannot be excluded. CT chest following intravenous contrast adminstration is recommended for further evaluation. 3. Findings compatible with hepatic steatosis. 4. Intra-abdominal lymph nodes have remained prominent and have somewhat increased in size compared to the prior study. Clinical significance of this finding is uncertain. 5. Other findings as detalied.) Disposition Clinical Impression: Flank pain, Pulmonary nodules, Nonspecific abdominal lymphadenopathy, UTI ( urinary tract infection), Uncontrolled diabetes mellitus, Anxiety disorder, Fibromyalgia, Diabetes mellitus, Coronary artery disease, Dyslipidemia Case discussed with: patient, patient's family Disposition: Still a Patient Condition: Stable Time of Disposition: 21:31
[2016-06-27 20:26] LABS: Apearance,Urine Slightly Hazy (Clear); Bilirubin,Urine Negative (Negative); Blood, Urine Small mg/dL (Negative); Glucose,Urine (UA) >=500 mg/dL (Negative); Ketones,Urine Negative (Negative); Mucus,Urine Occasional /LPF (Occasional); Nitrite,Urine Negative (Negative); Protein,Urine Negative; RBC,Urine 4 /HPF (0-4); Squamous Epithelial Cell,Urine Occasional /HPF (0-10); Urine Color Yellow (Yellow); Urine Specific Gravity 1.031 (1.001-1.035); Urine Urobilinogen < 2.0 EU/DL (0.2-1.0); WBC,Urine 27 /HPF (0-6)
[2016-06-27 20:27] LABS: Alanine Aminotransferase 52 U/L (13-56); Albumin 3.5 G/DL (3.4-5.0); Alkaline Phosphatase 152 U/L (45-117); Amylase 56 U/L (25-115); Aspartate Amino Transferase 71 U/L (0-37); Blood Urea Nitrogen 22 MG/DL (7-18); Glucose 249 MG/DL (74-106); Osmolality,Calculated 283.8 MOS/KG (273-304); Potassium 4.2 MMOL/L (3.5-5.1); Sodium 137 MMOL/L (136-145); Total Protein 8.4 G/DL (6.4-8.3); Troponin I Only < 0.015 NG/ML (0.00-0.045)
--- NOTE | 2016-06-27 21:00 | XRay Report ---
XR abdomen 2V Indication: Abdominal pain. Comparison: CT of the abdomen and pelvis same date Technique: Flat and erect images of the abdomen were performed. Findings: In the few minutes since performance of CT abdomen and pelvis, no significant interval change has occurred. Impression: 1. No significant interval change has occurred in the few minutes since CT was performed. Please see report from CT for findings. 06/27/2016 8:51 PM PROCEDURE INTERPRETED AT [facility] DEPARTMENT OF RADIOLOGY Final Report Signed by: Dr. Aman Isaacs
--- NOTE | 2016-06-27 21:00 | CT Report ---
CT abdomen pelvis wo con Indication: Abdominal and pelvic pain. Comparison: CT of abdomen and pelvis 03/10/2014. Technique: CT of the abdomen and pelvis was performed without administration of intravenous contrast. The CT examination was performed using one or more of the following dose reduction techniques: Automatic exposure control, adjustment of the mA and kV according to patient size, use of acute or iterative reconstruction techniques. Findings: Complete evaluation of solid organs, vascular structures, and bowel wall is not possible secondary to lack of intravenous contrast. Lower chest: Prior sternotomy is demonstrated. Noncalcified pulmonary nodule right lower lobe image #10 measures up to 5.8 mm. This nodule has minimally increased in size since the comparison study. Additional subpleural nodule within the left lower lobe image #9 is demonstrated, measuring 6.8 mm. This nodule may have minimally increased in size since comparison study. Additional nodule within the right lower lobe image #12 has minimally increased in size since comparison study. No pleural effusions are present. Liver: The liver demonstrates a diffusely heterogeneous hypoattenuating appearance compatible with hepatic steatosis. No focal hepatic masses are present. Gallbladder: The gallbladder demonstrates no significant abnormality. Spleen: Spleen is normal in size and appearance. Small peripherally calcified splenic artery aneurysm measuring up to 7.5 mm is demonstrated, little interval change in size. Pancreas: Pancreas demonstrates no significant abnormality. Adrenal glands: The adrenal glands demonstrate no significant abnormalities. Kidneys: The kidneys demonstrate no significant abnormalities. Aorta: Intimal calcification of the aorta and iliac arteries is demonstrated. Inferior vena cava: The inferior vena cava demonstrates no significant abnormality. Lymph nodes: Upper para-aortic lymph nodes prominent, measuring up to 9 mm in short axis dimension. Little interval change has occurred since the comparison study. Significance of these lymph nodes is uncertain. Portacaval lymph nodes have minimally increased in size measuring 2.3 cm AP dimension. Stomach and bowel: Stomach, duodenum, and small bowel demonstrate no significant abnormalities. The large bowel demonstrates no acute findings. Intrapelvic contents: The uterus is surgically absent. The urinary bladder demonstrates no significant abnormality. The ovaries aren't identified and may be surgically absent. Skeletal structures: Bilateral facet arthropathies noted in the mid to lower lumbar spine. No acute osseous pathology is demonstrated. Soft tissues and muscular structure of the body wall: Demonstrate no significant abnormalities. Impression: 1. No specific etiology of abdominal or pelvic pain is demonstrated. 2. Pulmonary nodules have increased in size since comparison study. Neoplastic process cannot be excluded. CT chest following intravenous contrast administration is recommended for further evaluation. 3. Findings compatible with hepatic steatosis. 4. Intra-abdominal lymph nodes have remained prominent and have somewhat increased in size compared to the prior study. Clinical significance of this finding is uncertain. 5. Other findings as detailed. 06/27/2016 8:38 PM PROCEDURE INTERPRETED AT [facility] DEPARTMENT OF RADIOLOGY Final Report Signed by: Dr. Aman Isaacs
--- NOTE | 2016-06-27 21:00 | XRay Report ---
XR chest 1V portable Indication: Abdominal pain Comparison: Chest x-ray 02/13/2016 CT abdomen and pelvis same date Technique: Portable AP chest was performed. Findings: The heart size appears within normal limits. Sternal wires are stable. Pulmonary vasculature demonstrates no specific abnormality. Hilar structures demonstrate fairly symmetric appearance. The lungs suggests little interval change since comparison study.. There is a small faint nodular density within the lateral aspect of the left mid lung measuring up 7-7.5 mm craniocaudal dimension. Bones and soft tissues demonstrate no evidence of acute pathology. Impression: 1. New pulmonary nodule lateral aspect of mid left lung is suggested. This combined with enlarging pulmonary nodules within the lower lungs as detailed on CT performed same date could reflect neoplastic process. 06/27/2016 8:49 PM PROCEDURE INTERPRETED AT [facility] DEPARTMENT OF RADIOLOGY Final Report Signed by: Dr. Aman Isaacs
[2016-06-27] MEDS ORDERED: cefTRIAXone 1,000 MG in SODIUM CHLORIDE 0.9% 100 ML IV STA (21:09)
[2016-06-27] MEDS ORDERED: SODIUM CHLORIDE 0.9% 100 ML IV ONE (21:21)
[2016-06-27] MEDS ORDERED: cefTRIAXone 1,000 MG VIAL ONE (21:21)
--- NOTE | 2016-06-27 22:51 | CT Report ---
CT chest abdomen pelvis w con Indication: Multiple pulmonary nodules and nonspecific abdominal lymph nodes. Comparison: CT of the abdomen and pelvis without intravenous contrast performed same date. Chest x-ray same date. Technique: CT of the chest, abdomen, and pelvis was performed following the administration of intravenous contrast. The CT examination was performed using one or more of the following dose reduction techniques: Automatic exposure control, adjustment of the mA and kV according to patient size, or iterative reconstruction techniques. Findings: CHEST: Within the lower neck, 14 to 15 mm hypodense lesion of the right thyroid lobe is demonstrated. Soft tissues and muscular structure of the lower neck are otherwise unremarkable. Multiple mediastinal lymph nodes are upper limits of normal in size to minimally enlarged with subcarinal lymph nodes measuring 15 mm short axis dimension, lower right paratracheal lymph nodes measuring up to 14 mm short axis dimension, and multiple AP window lymph nodes measuring up to 8-9 mm in short axis dimension. Several lymph nodes within the right hilum, subcarinal region, right paratracheal region and partially calcified. The aorta demonstrates normal 3 vessel arch anatomy. No acute aortic pathology is present. The pulmonary artery demonstrates no significant abnormality. The heart size is normal. Previous left internal mammary bypass graft has occurred and multiple coronary artery calcifications and/or stents are present. Pulmonary nodule in the subpleural left upper lobe image #45 likely accounts for the nodular density on recent chest x-ray. This measures 6-7 mm in size and has suggested minimal internal calcification. Additional pulmonary nodules within the lower lobes are reidentified and on this study suggests little interval change since additional comparison CT of the abdomen and pelvis performed March 10, 2014. No pleural effusions or endobronchial lesions are present. Bony structure of the chest demonstrates presence of sternal wires, no acute osseous pathology is suggested. Soft tissues and musculature of the chest wall demonstrate no significant abnormalities. ABDOMEN/PELVIS: Appearance of the abdomen demonstrates little change from prior study. No additional imaging findings are present. Impression: 1. Multiple pulmonary nodules are present within the chest as detailed above. Additionally partially calcified mediastinal and hilar lymph nodes are present. One of the pulmonary nodules within the left upper lobe has some evidence of internal attenuation suggesting stippled calcification and this may simply reflect a partially calcified granuloma. Additional pulmonary nodules previously identified within the lower lobes are reidentified. Follow-up study in 6 months is recommended to assess stability. 2. Other nonacute findings are present within the chest as detailed. 3. Stable appearance of the abdomen and pelvis. Multiple lymph nodes again are demonstrated enlarged as detailed previously on noncontrast CT of abdomen and pelvis report. 06/27/2016 10:23 PM PROCEDURE INTERPRETED AT [facility] DEPARTMENT OF RADIOLOGY Final Report Signed by: Dr. Aman Isaacs
[2016-06-27] MEDS ORDERED: GLUCAGON 1 MG VIAL IM PRN ×2 (22:56→23:05)
[2016-06-27] MEDS ORDERED: DEXTROSE 50% 25 GM/50 ML VIAL IV PRN ×2 (22:56→23:05)
[2016-06-27] MEDS ORDERED: FAMOTIDINE 20 MG TABLET PO PRN (23:07)
--- NOTE | 2016-06-27 23:12 | Hospitalist History & Physical ---
Assessment and Plan (1) Diabetes mellitus Status: Chronic Current Visit: Yes (2) Fibromyalgia Status: Chronic Current Visit: Yes (3) Hypertension Status: Chronic Current Visit: No Qualifiers: Hypertension type: essential hypertension Qualified Code(s): I10 - Essential (primary) hypertension (4) Flank pain Status: Acute Current Visit: Yes (5) Pulmonary nodules Status: Acute Current Visit: Yes (6) UTI (urinary tract infection) Status: Acute Assessment and plan: Patient will be admitted to our service. Will continue with IV Rocephin for treatment of urinary tract infection. Am concerned about these pulmonary nodules will consult pulmonary. Need their input on these. She might just need outpatient follow-up. For her thyroid I want to get ultrasound. She does relate a history of having a thyroid nodule. Need to get records from [facility] regarding the ultrasounds in the past. Continue other home meds as appropriate. And reevaluate patient in the morning and adjust plans appropriate Current Visit: Yes History of Present Illness Chief complaint: Bilateral flank pain History of present illness: Ms. Herrera is a 60 year old female with past medical history of diabetes, coronary artery disease, fibromyalgia, hypertension and migraines who came in today because of pain in her lower back. Patient reports a history of pyelonephritis several years ago and this pain reminded her of that pain. Patient denies any, dysuria. She came in for evaluation of the emergency room. In the workup she was found to have various pulmonary nodules. The original CT scan without contrast showed concern for malignancy. The repeat CT scan showed them being nodules also identified a thyroid nodule. Patient has a family history of cancer particularly in the liver and she is very concerned about her health and wants to be evaluated. I was consulted to admit her to the emergency room. Home Medications Medication Instructions Recorded Confirmed Type Amitriptyline HCl 100 mg PO BEDTIME 02/13/16 06/27/16 History Canagliflozin [Invokana] 300 mg PO DAILY 02/13/16 06/27/16 History Carvedilol [Coreg] 25 mg PO BID 02/13/16 06/27/16 History Furosemide Tab [Lasix Tab] 40 mg PO DAILY 02/13/16 06/27/16 History HYDROcodone/ACETAMIN 10-325 [[place] 1 tablet PO QID PRN 02/13/16 06/27/16 History 10-325] Insulin Glargine [Lantus] 80 unit SUBCUT BEDTIME 02/13/16 06/27/16 History Insulin Regular [HumuLIN R] 10 unit SUBCUT TID W/MEALS 02/13/16 06/27/16 History Losartan Potassium 25 mg PO DAILY 02/13/16 06/27/16 History Pregabalin [Lyrica] 75 mg PO TID 02/13/16 06/27/16 History Rosuvastatin [Crestor] 20 mg PO DAILY 02/13/16 06/27/16 History clonazePAM [Clonazepam] 1 mg PO BEDTIME 02/13/16 06/27/16 History metFORMIN [Glucophage] 500 mg PO BID W/MEALS 02/13/16 06/27/16 History raNITIdine HCl [Zantac Tab] 300 mg PO BEDTIME PRN 02/13/16 06/27/16 History Aspirin EC Tab 325 mg PO BEDTIME 06/27/16 06/27/16 History Desvenlafaxine Succinate [Pristiq 25 mg PO QAM 06/27/16 06/27/16 History ER] Allergies Allergy/AdvReac Type Severity Reaction Status Date / Time NSAIDS (Non-Steroidal Allergy Intermediate Abdominal Verified 02/13/16 10:46 Anti-Inflamma Pain Medical,Surgical,& Family Hx - Medical History Cardio: History of: Cardiac Dysrhythmia (unknown tachycardia), CHF, CAD, Hypertension Psychological: History of: Anxiety Disorders Neurology: History of: Migraine HEENT: History of: Ear Problem (hard of hearing wears hearing aids) Endocrine: History of: Diabetes Mellitus (IDDM) (cbg 336 this am) Rheumatology: History of;: Fibromyalgia Gastrointestinal: History of: GI Problems (ulcers) Musculoskeletal: History of: Musculoskeletal Problems (kang cyst rt knee) - Surgical History Cardiac Surgeries: Sugical HX of: Cardiac Catheterization (stent in past 10 years) Abdominal Surgeries: Surgical HX of: Appendectomy Reproductive Surgeries: Surgical HX of;: Section, Hysterectomy Orthopedic Surgeries: Surgical HX of;: Orthopedic Surgery (carpal tunnel) - Family History Family History: Reports;: Family Diabetes (mother, aunts, sister), Family Heart Disease (mother (htn), grandfather ([place])) - Social History Smoking Status: Former smoker Frequency of Alcohol Use: None Type of Drug Use: None 12 point system: reviewed and no additional remarkable complaints except as stated Exam - Constitutional Vitals: Period Temp Pulse Resp BP Sys/Elizabeth Pulse Ox Last 24 Hr 98.4 F-98.4 F 98-98 20-20 115-115/77-77 95 General appearance: over weight - Head Head exam: Present: normal inspection - Eye Eye exam: Present: EOMI Pupils: Present: JACINDA - ENT ENT exam: Present: normal exam - Neck Neck exam: Present: normal inspection - Respiratory Respiratory exam: Present: clear to auscultation bilaterally - Cardiovascular Cardiovascular exam: Present: regular rate and rhythm - GI/Abdominal GI/Abdominal exam: Present: normal bowel sounds - Extremities Exam Extremities exam: Present: normal inspection - Back Exam Back exam: Present: CVA tenderness (L), CVA tenderness (R) - Psychiatric Psychiatric exam: Present: normal affect, normal mood - Skin Skin exam: Present: normal color Results - Labs CBC & BMP: 06/27/16 19:29 06/27/16 19:29
[2016-06-28] MEDS: clonazePAM 0.5 MG TABLET PO SCH ×2 (00:23→21:48)
[2016-06-28] MEDS: AMITRIPTYLINE 100 MG TABLET PO SCH ×2 (00:24→21:49)
[2016-06-28] MEDS: ASPIRIN EC 325 MG TABLET PO SCH ×2 (00:24→21:48)
[2016-06-28 07:16] LABS: Basophils # 0.1 10*3/uL (0.0-0.2); Eosinophils # 0.3 10*3/uL (0.0-0.87); Eosinophils % 4.2 % (0.00-10.9); Hematocrit 40.4 VOL% (35.7-47.0); Hemoglobin 13.4 GM/DL (12.0-16.0); Immature Granulocytes % 0.3 %; Immature Granulocytes Absolute 0.02 #; Lymphocytes # 2.6 10*3/uL (1.4-4.0); Lymphocytes % 41.8 % (21.3-54.2); Mean Corpuscular HGB Conc 33.2 GM/DL (32-36); Mean Corpuscular Hemoglobin 30 PG (27-34); Mean Platelet Volume 12.5 FL (9.6-12.0); Monocytes # 0.9 10*3/uL (0.11-0.8); Monocytes % 14.1 % (1.7-12.7); Neutrophils # 2.4 10*3/uL (1.4-7.4); Neutrophils % 38.6 % (38.7-73.9); Platelet Count 135 T/CUMM (130-400); Red Blood Count 4.54 MC/CUMM (3.8-5.5); Red Cell Distribution Width 14.3 % (9.3-17.3); White Blood Count 6.2 T/CUMM (4-12)
[2016-06-28 07:36] LABS: Hypochromasia 1+; Microcytosis 1+; Platelet Estimate Adequate
[2016-06-28 07:46] LABS: Calcium 8.3 MG/DL (8.5-10.1); Osmolality,Calculated 282.5 MOS/KG (273-304); Potassium 4.1 MMOL/L (3.5-5.1); Total Protein 7.1 G/DL (6.4-8.3)
[2016-06-28] MEDS ORDERED: DESVENLAFAXINE SUCCINATE 25 MG PO SCH (09:00)
[2016-06-28] MEDS ORDERED: NON-FORMULARY MEDICATION (Canagliflozin [Invokana] 300 MG) PO SCH (09:00)
--- NOTE | 2016-06-28 09:00 | Ultrasound Report ---
US thyroid Indication: Thyroid nodule. Comparison: CT chest dated June 27, 2016. Technique: Multiple longitudinal and transverse real-time sonographic images of the thyroid are obtained. Findings: The right lobe of the thyroid measures 4.3 x 2.4 x 1.7 cm. The left lobe of the thyroid measures 4.4 x 1.9 x 1.3 cm. The thyroid isthmus measures 0.84 cm in thickness. Predominantly cystic nodule demonstrated within the right thyroid lobe measuring up to 1.9 cm. 4 mm cystic nodule demonstrated within the right thyroid lobe superiorly. 6 mm hypoechoic solid nodule within the right lobe inferiorly. Several predominantly cystic nodules demonstrated within the left lobe, the largest measuring up to 5 mm. IMPRESSION: Multinodular thyroid. None meet criteria for FNA at this time. PROCEDURE INTERPRETED AT [facility] DEPARTMENT OF RADIOLOGY Final Report Signed by: Dr Tyron Gould
[2016-06-28] MEDS: ENOXAPARIN 40 MG/0.4 ML SYRINGE SUBCUT SCH (09:32)
[2016-06-28] MEDS: INSULIN REGULAR 100 UNIT/ML SUBCUT SCH ×4 (09:32→21:48)
[2016-06-28] MEDS: FUROSEMIDE 40 MG TABLET PO SCH (09:33)
[2016-06-28] MEDS: LOSARTAN 25 MG TABLET PO SCH (09:33)
[2016-06-28] MEDS: ROSUVASTATIN 20 MG TABLET PO SCH (09:33)
[2016-06-28] MEDS: CARVEDILOL 25 MG TABLET PO SCH ×2 (09:33→21:49)
[2016-06-28] MEDS: PREGABALIN 75 MG CAPSULE PO SCH ×3 (09:33→21:48)
--- NOTE | 2016-06-28 14:42 | Hospitalist Progress Note ---
Assessment and Plan - Time spent with patient Time spent with patient: Greater than 30 minutes (1) Pulmonary nodules Status: Acute Assessment and plan: Pulmonary is involved and will follow up with the patient as an outpatient. Current Visit: Yes (2) UTI (urinary tract infection) Status: Acute Assessment and plan: Continue antibiotics and await speciation. Current Visit: Yes (3) Anxiety disorder Status: Chronic Assessment and plan: Continue medications. Current Visit: Yes Qualifiers: Anxiety disorder type: generalized anxiety disorder Qualified Code(s): F41.1 - Generalized anxiety disorder (4) Diabetes mellitus Status: Chronic Assessment and plan: We will obtain a hemoglobin A1c tomorrow. Continue current management. Current Visit: Yes (5) Hypertension Status: Chronic Assessment and plan: Continue current medications. Current Visit: No Qualifiers: Hypertension type: essential hypertension Qualified Code(s): I10 - Essential (primary) hypertension (6) Elevated lipase Status: Acute Assessment and plan: We will obtain a right upper quadrant ultrasound tomorrow. Will check lipase tomorrow. Patient is tolerating diet fine and does not have pancreatitis currently. CT of her gallbladder appears normal. Current Visit: Yes Hospitalist: Subjective Interval history: I spoke at length with the patient regarding the findings on CT and ultrasound of her thyroid. She had further questions about her lab values diabetes control etc. She appears very anxious about her condition and like to stay in the hospital longer. Exam - Constitutional Vitals: Period Temp Pulse Resp BP Sys/Elizabeth Pulse Ox Last 24 Hr 96.6 F-97.8 F 82-104 18-20 115-147/62-76 93-94 General appearance: no acute distress, over weight - Head Head exam: Present: normal inspection, normocephalic, atraumatic - Eye Eye exam: Present: EOMI Pupils: Present: JACINDA - ENT ENT exam: Present: normal exam - Neck Neck exam: Present: normal inspection - Respiratory Respiratory exam: Present: clear to auscultation bilaterally. Absent: rhonchi, wheezes - Cardiovascular Cardiovascular exam: Present: regular rate and rhythm. Absent: gallop, rubs, systolic murmur - GI/Abdominal GI/Abdominal exam: Present: normal bowel sounds, soft. Absent: distended, firm , guarding, tenderness, rebound - Extremities Exam Extremities exam: Present: normal inspection. Absent: calf tenderness, edema Results - Labs CBC & BMP: 06/28/16 06:26 06/28/16 06:26 Lab Results: I have reviewed the past 24 hour labs
--- NOTE | 2016-06-28 16:13 | Pulmonology Consult Note ---
Assessment and Plan (1) Hypertension Status: Chronic Assessment and plan: Her blood pressure is doing well at present and she is tolerating her medicines. Current Visit: No Qualifiers: Hypertension type: essential hypertension Qualified Code(s): I10 - Essential (primary) hypertension (2) Coronary artery disease Status: Chronic Assessment and plan: The patient has had previous bypass surgery. Current Visit: Yes Qualifiers: Coronary Disease-Associated Artery/Lesion type: [place] artery [place] vs. transplanted heart: [place] heart Associated angina: without angina Qualified Code(s): I25.10 - Atherosclerotic heart disease of [place] coronary artery without angina pectoris (3) Pulmonary nodules Status: Acute Assessment and plan: The patient has some very tiny scattered pulmonary nodules and some of these are small calcified granulomas. She has calcification in the hilar nodes. Although this probably represents granulomatous disease. For now the small nodule will just need to be followed. We will plan to get an x-ray in [address] scan at some point. Current Visit: Yes (4) UTI (urinary tract infection) Status: Acute Assessment and plan: Her urine culture is pending. She is getting antibiotics. Current Visit: Yes (5) Uncontrolled diabetes mellitus Status: Acute Assessment and plan: Her glucose has been up to 300 at times. Current Visit: Yes History of Present Illness Chief complaint: Pulmonary nodule History of present illness: Ms. Herrera is a 60 year old white female that has a history of coronary artery disease and diabetes along with hypertension and migraines. She has been told she had fibromyalgia. In the past she has had pyelonephritis. She came in with flank pain and thought she had a UTI. She is getting some treatment but on her skin of her abdomen there were some small nodules in the lungs. Her CT of her chest was done that does show some very tiny nodules. She has some calcified nodes in her hilar areas and mediastinum. The largest nodule is about 6 or 7 mm. She is not having any chest symptoms now. She did have bypass surgery last year and quit smoking at that time. She has been smoking for quite a long time. She has not had to take any medicines for her breathing. She has been active and feeling fairly well lately. Home Medications Medication Instructions Recorded Confirmed Type Amitriptyline HCl 100 mg PO BEDTIME 02/13/16 06/27/16 History Canagliflozin [Invokana] 300 mg PO DAILY 02/13/16 06/27/16 History Carvedilol [Coreg] 25 mg PO BID 02/13/16 06/27/16 History Furosemide Tab [Lasix Tab] 40 mg PO DAILY 02/13/16 06/27/16 History HYDROcodone/ACETAMIN 10-325 [[place] 1 tablet PO QID PRN 02/13/16 06/27/16 History 10-325] Insulin Glargine [Lantus] 20 unit SUBCUT BEDTIME 02/13/16 06/28/16 History Insulin Regular [HumuLIN R] 10 unit SUBCUT ACHS 02/13/16 06/28/16 History Losartan Potassium 25 mg PO DAILY 02/13/16 06/27/16 History Pregabalin [Lyrica] 75 mg PO TID 02/13/16 06/27/16 History Rosuvastatin [Crestor] 20 mg PO DAILY 02/13/16 06/27/16 History clonazePAM [Clonazepam] 1 mg PO BEDTIME 02/13/16 06/27/16 History metFORMIN [Glucophage] 500 mg PO BID W/MEALS 02/13/16 06/27/16 History raNITIdine HCl [Zantac Tab] 300 mg PO BEDTIME PRN 02/13/16 06/27/16 History Aspirin EC Tab 325 mg PO BEDTIME 06/27/16 06/27/16 History Desvenlafaxine Succinate [Pristiq 25 mg PO QAM 06/27/16 06/27/16 History ER] Insulin Glargine [Lantus] 60 unit SUBCUT DAILY 06/28/16 06/28/16 History Allergies Allergy/AdvReac Type Severity Reaction Status Date / Time NSAIDS (Non-Steroidal Allergy Intermediate Abdominal Verified 02/13/16 10:46 Anti-Inflamma Pain - Constitutional Constitutional: Present: fatigue. Absent: chills, fever(s), weight loss - EENT Eyes: Absent: loss of vision Ears: Absent: decreased hearing Nose, mouth and throat: Absent: dysphagia, headache(s), sinus pressure, vertigo - Cardiovascular Cardiovascular: Absent: chest pain at rest, chest pain with activity, dyspnea, orthopnea, palpitations, PND - Respiratory Respiratory: Absent: cough, dyspnea, hemoptysis, wheezing, pain on inspiration - Gastrointestinal Gastrointestinal: Absent: abdominal pain, change in bowel habits, dysphagia, nausea, vomiting - Genitourinary Genitourinary: Present: dysuria, flank pain, urinary frequency - Musculoskeletal Musculoskeletal: Absent: arthralgias, muscle weakness - Neurological Neurological: Absent: abnormal speech, focal weakness, paresthesias Exam (Pulmonay) H&P - Constitutional Vitals: Period Temp Pulse Resp BP Sys/Elizabeth Pulse Ox Last 24 Hr 96.6 F-97.8 F 82-104 18-20 115-147/62-76 93-94 General appearance: no acute distress, over weight - Head Head exam: Present: normal inspection, normocephalic - Eye Eye exam: Present: EOMI. Absent: scleral icterus Pupils: Present: JACINDA - ENT ENT exam: Present: normal exam - Neck Neck exam: Present: normal inspection. Absent: lymphadenopathy, thyromegaly - Respiratory Respiratory exam: Present: clear to auscultation bilaterally. Absent: wheezes - Cardiovascular Cardiovascular exam: Present: regular rate and rhythm. Absent: gallop, systolic murmur - GI/Abdominal GI/Abdominal exam: Present: normal bowel sounds, soft. Absent: distended, organomegaly, tenderness - Extremities Exam Extremities exam: Absent: calf tenderness, edema - Back Exam Back exam: Present: CVA tenderness (R) - Neurological Exam Neurological exam: Present: alert, oriented X3, CN II-XII intact - Psychiatric Psychiatric exam: Present: normal affect, normal mood - Skin Skin exam: Present: warm, dry Medical,Surgical,& Family Hx - Medical History Cardio: History of: Cardiac Dysrhythmia (unknown tachycardia), CHF, CAD, Hypertension No history of: Aneurysm, Cerebrovascular Disease, Congenital Heart Disease, [place], Pacemaker, PVD, Valvular Heart Disease, Cardiovascular Problems Psychological: History of: Anxiety Disorders No history of: ADHD, Behavior Problems, Bipolar Disorder, Depression, Psychiatric/Substance Abuse Tx, Schizophrenia, Violent Behavior, Psychiatric Problems Neurology: History of: Migraine No history of: Brain Aneurysm, Cerebral Hemorrhage, Cerebrovascular Accident , Cerebral Palsy, Dementia, Multiple Sclerosis, Parkinson's Disease, Peripheral Neuropathy, Seizures, TIA, Vertigo, Neurologocal Cancer HEENT: History of: Ear Problem (hard of hearing wears hearing aids) No history of: Eye Problem, Dental Problems, Glaucoma, Oral Cancer, HEENT Problems Endocrine: History of: Diabetes Mellitus (IDDM) (cbg 336 this am), Diabetes Mellitus (NIDDM), Endocrine Problems (hx of thyroid nodule) No history of: Adrenal Disease, Dyslipidemia, Thyroid Disorder, Endocrine Cancer Rheumatology: History of;: Fibromyalgia No history of;: Gout, Myasthenia Gravis, Psoriasis, Rheumatoid Arthritis, Sjogrens, Systemic Lupus Erythematosus, Rheumatological Problems Respiratory: History of: Obstructive Sleep Apnea No history of: Asthma, Bronchitis, COPD, Intubation, Pulmonary Embolism, Pulmonary Hypertension, Pneumonia, Lung Cancer, Respiratory Problems Renal: No history of: Dialysis, Renal Failure, Renal Problems Genitourinary: No history of: Bladder Problem, Kidney Stones, Recurring Urinary Tract Infections, Genitourinary Cancer, Problems Gastrointestinal: History of: GERD, GI Problems (ulcers) No history of: Bowel Obstruction, Clostridium Difficile, Crohn's Disease, Diverticulitis/ Diverticulosis, Esophageal Varices, Gastrointestinal Bleed, Hemorrhoids, Hematochezia, Hepatitis, Liver Problems, Pancreatitis, Polyps, Ulcerative Colitis, Gastrointestinal Cancer Musculoskeletal: History of: Musculoskeletal Problems (kang cyst rt knee) No history of: Amputation, Back/Neck Problems, Degenerative Disk Disease, Herniated Disk, Osteoporosis, Musculoskeletal Cancer Hematology: No history of: Anemia, Blood Transfusion Reaction, Bleeding Problems, Clotting Problems, Sickle Cell Disease, Hematologic Cancer, Blood Disorders Reproductive: No history of: Abnormal Pap Smear, Breast Cancer, Endometriosis, Ectopic , Ovarian Cysts, Complication, Sexually Transmitted Disorders , Reproductive Cancer, Reproductive Problems Other: No history of: Anesthesia Reactions, Anaphylaxis, Cancer, Eczema, HIV, Malignant Hyperthermia, MRSA, Vancomycin-Resistant Enterococci, Skin Problems, Miscellaneous Medical Problems - Surgical History Cardiac Surgeries: Sugical HX of: Cardiac Catheterization (stent in past 10 years), Cardiac Surgery Patient Denies: Femoral-Popliteal Bypass Graft, Carotid Endarterectomy, Internal Defibrillator, Vascular Access Devices Thoracic Surgeries: Patient denies;: Kidney (Renal Surgery), Lithotripsy, Nephrectomy, Organ Transplant, Lobectomy Neurologic Surgeries: Patient denies: Brain Aneurysm, Cerebral Hemorrhage, Neurologic Surgery HEENT Surgeries: Patient denies: Carotid Endarterectomy, Eye Surgery, Thyroid Surgery, Tonsilectomy & Adenoidectomy Abdominal Surgeries: Surgical HX of: Abdominal Surgery, Appendectomy Patient denies: Cholecystectomy, Colonoscopy, Gastric Bypass Surgery, EGD, Hernia Repair, Splenectomy Reproductive Surgeries: Surgical HX of;: Section, Gynecologic Surgery, Hysterectomy Patient denies;: Breast Surgery, Cystoscopy, Dilation and Curettage, Genitourinary Surgery, Tubal Ligation Orthopedic Surgeries: Surgical HX of;: Orthopedic Surgery (carpal tunnel) Patient denies;: Implanted Devices, Spinal Surgery, Total Hip Replacement, Total Knee Replacement - Family History Family History: Reports;: Family Cancer (mother), Family Diabetes (mother, aunts , sister), Family Heart Disease (mother (htn), grandfather ([place])), Family Hypertension (mother) Denies;: Family Anesthesia Reaction, Family Hematology, Family Psychiatric Problems, Family Stroke, Additional Family History - Social History Smoking Status: Former smoker Frequency of Alcohol Use: None Type of Drug Use: None Results - Labs CBC & BMP: 06/28/16 06:26 06/28/16 06:26 - Diagnostic Findings Procedure: Chest x-ray: image reviewed by me, report reviewed by me (Chest x- ray shows scattered granulomas and some calcified nodes. There is no worrisome lesions seen.), CT - chest: image reviewed by me, report reviewed by me (CT shows a 6-7 mm nodule in the left lung. There is some scattered granulomas present with some calcified nodes.)
[2016-06-28] MEDS ORDERED: cefTRIAXone 1,000 MG in SODIUM CHLORIDE 0.9% 100 ML IV SCH (21:00)
[2016-06-29 06:34] LABS: Osmolality,Calculated 288.3 MOS/KG (273-304); Potassium 3.9 MMOL/L (3.5-5.1)
[2016-06-29 06:35] LABS: Risk Ratio 6.88
[2016-06-29 06:47] LABS: Basophils % 0.9 % (0.0-0.8); Eosinophils # 0.2 10*3/uL (0.0-0.87); Eosinophils % 4.1 % (0.00-10.9); Hematocrit 38.3 VOL% (35.7-47.0); Hemoglobin 12.4 GM/DL (12.0-16.0); Immature Granulocytes % 0.2 %; Immature Granulocytes Absolute 0.01 #; Lymphocytes # 2.2 10*3/uL (1.4-4.0); Lymphocytes % 47.2 % (21.3-54.2); Mean Corpuscular HGB Conc 32.4 GM/DL (32-36); Mean Corpuscular Hemoglobin 29 PG (27-34); Mean Corpuscular Volume 89.7 FL (87-102); Mean Platelet Volume 11.9 FL (9.6-12.0); Monocytes # 0.7 10*3/uL (0.11-0.8); Monocytes % 14.9 % (1.7-12.7); Neutrophils # 1.5 10*3/uL (1.4-7.4); Neutrophils % 32.7 % (38.7-73.9); Platelet Count 135 T/CUMM (130-400); Red Blood Count 4.27 MC/CUMM (3.8-5.5); Red Cell Distribution Width 13.9 % (9.3-17.3); White Blood Count 4.6 T/CUMM (4-12)
[2016-06-29 07:20] LABS: Band Neutrophils 2 % (0-10); Eosinophils 5 % (0-10); Lymphocytes 39 % (20-55); Segmented Neutrophils 38 % (50-85); Total Cells Counted 100
[2016-06-29 07:21] LABS: Hypochromasia Slight
[2016-06-29] MEDS: PREGABALIN 75 MG CAPSULE PO SCH ×2 (09:38→14:28)
[2016-06-29] MEDS: LOSARTAN 25 MG TABLET PO SCH (09:38)
[2016-06-29] MEDS: FUROSEMIDE 40 MG TABLET PO SCH (09:38)
[2016-06-29] MEDS: ROSUVASTATIN 20 MG TABLET PO SCH (09:38)
[2016-06-29] MEDS: ENOXAPARIN 40 MG/0.4 ML SYRINGE SUBCUT SCH (09:38)
[2016-06-29] MEDS: CARVEDILOL 25 MG TABLET PO SCH (09:38)
[2016-06-29] MEDS: INSULIN REGULAR 100 UNIT/ML SUBCUT SCH ×2 (09:39→14:28)
--- NOTE | 2016-06-29 12:50 | Pulmonology Progress Note ---
Pulmonary - PN: Subj Interval history: Patient is a 60-year-old white lady that came in with some flank pain and is being treated for urinary tract infection. She was found to have a small pulmonary nodule along with some adenopathy. Most of this looks like granulomatous disease. The nodule will need to be followed. She is feeling better and wants to go home today. Exam (Progress Note) - Constitutional Vitals: Period Temp Pulse Resp BP Sys/Elizabeth Pulse Ox Last 24 Hr 96.1 F-99.2 F 72-94 16-20 108-164/60-89 93-98 Exam: General appearance: no acute distress, over weight, she looks comfortable at present. - Head Head exam: Present: normal inspection, normocephalic - Eye Eye exam: Present: EOMI. Absent: scleral icterus Pupils: Present: JACINDA - ENT ENT exam: Present: normal exam - Neck Neck exam: Present: normal inspection. Absent: lymphadenopathy, thyromegaly - Respiratory Respiratory exam: Present: clear to auscultation bilaterally. Absent: wheezes - Cardiovascular Cardiovascular exam: Present: regular rate and rhythm. Absent: gallop, systolic murmur - GI/Abdominal GI/Abdominal exam: Present: normal bowel sounds, soft. Absent: distended, organomegaly, tenderness - Extremities Exam Extremities exam: Absent: calf tenderness, edema - Back Exam Back exam: Present: Her back pain is better. - Neurological Exam Neurological exam: Present: alert, oriented X3, CN II-XII intact - Psychiatric Psychiatric exam: Present: normal affect, normal mood - Skin Skin exam: Present: warm, dry Results - Labs CBC & BMP: 06/29/16 04:00 06/29/16 04:00 Assessment and Plan (1) Hypertension Status: Chronic Assessment and plan: Her blood pressure is doing well at present and she is tolerating her medicines. She appears to be stable. Current Visit: No Qualifiers: Hypertension type: essential hypertension Qualified Code(s): I10 - Essential (primary) hypertension (2) Coronary artery disease Status: Chronic Assessment and plan: The patient has had previous bypass surgery. She is not having any chest pain. Current Visit: Yes Qualifiers: Coronary Disease-Associated Artery/Lesion type: mcgrath artery [place] vs. transplanted heart: mcgrath heart Associated angina: without angina Qualified Code(s): I25.10 - Atherosclerotic heart disease of mcgrath coronary artery without angina pectoris (3) Pulmonary nodules Status: Acute Assessment and plan: The patient has some very tiny scattered pulmonary nodules and some of these are small calcified granulomas. She has calcification in the hilar nodes. Although this probably represents granulomatous disease. For now the small nodule will just need to be followed. We will plan to get an x-ray in 6 months and repeat a CT scan at some point. Current Visit: Yes (4) UTI (urinary tract infection) Status: Acute Assessment and plan: Her urine culture is pending. She is getting antibiotics. Current Visit: Yes (5) Uncontrolled diabetes mellitus Status: Acute Assessment and plan: Her glucose is 212 this morning. Current Visit: Yes
[2016-06-29 13:36] VITALS: BP 126/60
--- NOTE | 2016-06-29 14:03 | Ultrasound Report ---
Referring Physician: Dahlia Lee MD Exam: US right upper quadrant Date: June 29, 2016 Reason: Elevated lipase, generalized abdominal pain Comparison: CT chest, abdomen and pelvis June 27, 2016 Technique: Grayscale and color flow images of the right abdomen were obtained. Ultrasound images were captured and stored. Findings: The liver measures 18.9 cm in AP dimension. There is diffuse increased echogenicity of the liver parenchyma, suggesting hepatic steatosis. No suspicious hepatic lesion is identified. No gallstones are seen. No abnormal gallbladder wall thickening or pericholecystic fluid is identified. The drafter civil (cad) reports a negative sonographic Woods's sign. The common bile duct is normal in size, measuring 0.5-0.6 cm in diameter. The visualized pancreas is unremarkable. Of note, early/mild pancreatitis can sometimes not have associated imaging findings. The right kidney measures 12.8 x 5.6 x 4.8 cm. No right hydronephrosis or suspicious renal lesion is identified. No ascites is seen. Impression: 1. Hepatic steatosis. 2. There is no sonographic evidence of cholelithiasis or acute cholecystitis. PROCEDURE INTERPRETED AT [facility] ([facility]) DEPARTMENT OF RADIOLOGY Final Report Signed by: Dr. Cydney Lopez
--- NOTE | 2016-06-29 14:49 | Discharge Summary ---
Hospital Course - Hospital Course Hospital Course: Ms. Post was admitted for evaluation of bilateral flank pain. Patient had a CT of her abdomen and pelvis was found to have various pulmonary nodules on the CT. Repeat CT of the chest abdomen and pelvis revealed pulmonary nodules similar comparable to previous CT from 2 years ago with minimal increase in size. Furthermore there was abdominal lymphadenopathy. Patient was admitted for evaluation. Pulmonary was consulted and recommended no further testing while hospitalized. They will follow up with the patient's in clinic with follow-up chest x-ray and CT of the chest. With regard to the patient's abdominal lymphadenopathy, the increase in size from previous CT of the abdomen 2 years ago was minimal. I recommended to the patient to obtain the medical records and take to her primary care provider for appropriate referral, if necessary, however no indication for further workup. Furthermore patient's hemoglobin A1c was noted to be 12. I encouraged her to follow-up with the primary care provider for management of this. By discharge she had met maximum benefit of hospitalization. I spent 40 minutes coordinating this discharge. - Time spent with patient Time with patient DS: Greater than 30 minutes Diagnosis - Discharge Diagnosis (1) Pulmonary nodules Status: Acute (2) UTI (urinary tract infection) Status: Acute (3) Anxiety disorder Status: Chronic (4) Diabetes mellitus Status: Chronic (5) Hypertension Status: Chronic (6) Elevated lipase Status: Acute Discharge Plan - Discharge Data Disposition: Disch To Home/Self Care Condition at Discharge: Stable Discharge Diet: advance to your usual diet Activity: resume usual activities as tolerated - Discharge Medications New Fenofibrate [Tricor] 145 mg PO DAILY #30 tablet Continue Rosuvastatin [Crestor] 20 mg PO DAILY Pregabalin [Lyrica] 75 mg PO TID clonazePAM [Clonazepam] 1 mg PO BEDTIME Furosemide Tab [Lasix Tab] 40 mg PO DAILY Carvedilol [Coreg] 25 mg PO BID raNITIdine HCl [Zantac Tab] 300 mg PO BEDTIME PRN PRN Reason: Reflux Canagliflozin [Invokana] 300 mg PO DAILY Losartan Potassium 25 mg PO DAILY HYDROcodone/ACETAMIN 10-325 [[place] 10-325] 1 tablet PO QID PRN PRN Reason: Pain Insulin Glargine [Lantus] 20 unit SUBCUT BEDTIME Aspirin EC Tab 325 mg PO BEDTIME Desvenlafaxine Succinate [Pristiq] 25 mg PO QAM Insulin Glargine [Lantus] 60 unit SUBCUT DAILY metFORMIN [Glucophage] 500 mg PO BID W/MEALS Amitriptyline HCl 100 mg PO BEDTIME Insulin Regular [HumuLIN R] 10 unit SUBCUT ACHS - Follow Up or Referral - Forms/Instructions Exam - Constitutional Vitals: Period Temp Pulse Resp BP Sys/Elizabeth Pulse Ox Last 24 Hr 96.1 F-99.2 F 72-94 16-20 108-164/60-89 93-98 General appearance: no acute distress, over weight - Head Head exam: Present: normal inspection, normocephalic, atraumatic - Eye Eye exam: Present: EOMI Pupils: Present: JACINDA - ENT ENT exam: Present: normal exam - Neck Neck exam: Present: normal inspection - Respiratory Respiratory exam: Present: clear to auscultation bilaterally. Absent: accessory muscle use, prolonged expiratory phase, wheezes - Cardiovascular Cardiovascular exam: Present: regular rate and rhythm. Absent: bradycardia, irregular rhythm, systolic murmur - GI/Abdominal GI/Abdominal exam: Present: normal bowel sounds. Absent: ascites, distended, hypoactive bowel sounds - Extremities Exam Extremities exam: Present: normal inspection Discharge Results Procedures and tests throughout hospitalization: Pending Orders 06/27/16 Urine Culture Routine Labs on day of discharge: Labs from last 24 hours 06/29/16 06/29/16 06/29/16 04:00 04:00 04:00 WBC 4.6 RBC 4.27 Hgb 12.4 Hct 38.3 MCV 89.7 MCH 29 MCHC 32.4 RDW 13.9 Plt Count 135 MPV 11.9 Neut % (Auto) 32.7 L Lymph % (Auto) 47.2 Waldo % (Auto) 14.9 H Eos % (Auto) 4.1 Baso % (Auto) 0.9 H Neut # (Auto) 1.5 Lymph # (Auto) 2.2 Waldo # (Auto) 0.7 Eos # (Auto) 0.2 Baso # (Auto) 0.0 Total Counted 100 Immature Gran % 0.2 Nucleated RBC % 0.0 Immature Gran # 0.01 Segmented Neutrophils 38 L Band Neutrophils 2 Lymphocytes 39 Monocytes 16 H Eosinophils 5 Nucleated RBCs # 0.00 Hypochromasia Slight Sodium 141 Potassium 3.9 Chloride 106 Carbon Dioxide 26 Anion Gap 12.9 BUN 19 H Creatinine 0.70 GFR Calculation 107 BUN/Creatinine Ratio 27.00 H Glucose 212 H POC Glucose Hemoglobin A1c 12.0 H Calculated Osmolality 288.3 Calcium 8.0 L Triglycerides Cholesterol LDL Cholesterol VLDL Cholesterol HDL Cholesterol Heart Disease Risk Ratio Lipase 06/29/16 06/28/16 06/28/16 04:00 19:07 15:06 WBC RBC Hgb Hct MCV MCH MCHC RDW Plt Count MPV Neut % (Auto) Lymph % (Auto) [place] % (Auto) Eos % (Auto) Baso % (Auto) Neut # (Auto) Lymph # (Auto) [place] # (Auto) Eos # (Auto) Baso # (Auto) Total Counted Immature Gran % Nucleated RBC % Immature Gran # Segmented Neutrophils Band Neutrophils Lymphocytes Monocytes Eosinophils Nucleated RBCs # Hypochromasia Sodium Potassium Chloride Carbon Dioxide Anion Gap BUN Creatinine GFR Calculation BUN/Creatinine Ratio Glucose POC Glucose 344 H 309 H Hemoglobin A1c Calculated Osmolality Calcium Triglycerides 415 H Cholesterol 172 LDL Cholesterol 84.0 VLDL Cholesterol 83.0 HDL Cholesterol 25 L Heart Disease Risk Ratio 6.88 Lipase 187.0 D Preliminary micro results at discharge 06/27/16 Unknown Urine Culture - Preliminary Urine,Clean Catch Gram Positive Cocci DS: Provider Date of admission: 06/27/16 22:56 Primary care physician: Alex Leavitt Attending physician on admission: Sergio Jones MD Consults: 06/27/16 22:56 Consult to Physician [CONS] Routine Comment: Please evaluate pulmonary nodules Consulting Provider: Phil Blackwood Consult to Specialist Group: Pulmonology When should Consulting Provider be notified: In am Person Notified: GER Date Notified: 06/28/16 Time Notified: 08:30 Discharging clinician: Dahlia Lee MD Expected date of discharge: 06/29/16
== END 2016-06-29 16:25 | disposition home or self-care (01) ==
LOC: N.ED 19:02 → N.EDINP 19:02 → SUATTDRO 22:56 → N.2E 23:30
PROVIDERS: ADMIT Internal Medicine; ATTEND Internal Medicine

== ENCOUNTER 2021-01-25 11:51 | Inpatient (IN) ==
[2021-01-25 14:34] LABS: INR 1.1; PT Patient Result 12.4 SECS (10.5-12.0); Partial Thromboplastin Time 25.8 SECS (23.8-32.1)
[2021-01-25 14:43] LABS: Bilirubin,Total 0.5 MG/DL (0.20-1.00); Calcium 8.1 MG/DL (8.5-10.1); Osmolality,Calculated 278.4 MOS/KG (273-304); Potassium 3.7 MMOL/L (3.5-5.1); Total Protein 7.3 G/DL (6.4-8.2)
[2021-01-25 15:12] LABS: Basophils % 0.7 % (0.0-0.8); Eosinophils # 0.1 10*3/uL (0.0-0.87); Eosinophils % 3.6 % (0.00-10.9); Hematocrit 20.5 VOL% (35.7-47.0); Immature Granulocytes % 0.4 %; Immature Granulocytes Absolute 0.01 #; Lymphocytes # 0.9 10*3/uL (1.4-4.0); Lymphocytes % 33.6 % (21.3-54.2); Mean Corpuscular HGB Conc 28.3 GM/DL (32-36); Mean Corpuscular Volume 77.4 FL (87-102); Mean Platelet Volume 12.4 FL (9.6-12.0); Monocytes % 16.6 % (1.7-12.7); Neutrophils % 45.1 % (38.7-73.9); Platelet Count 102 T/CUMM (130-400); Red Blood Count 2.65 MC/CUMM (3.8-5.5); Red Cell Distribution Width 16.7 % (9.3-17.3); White Blood Count 2.8 T/CUMM (4-12)
[2021-01-25 15:16] LABS: Hemoglobin 5.8 GM/DL (12.0-16.0)
[2021-01-25 15:45] LABS: Band Neutrophils 3 % (0-10); Eosinophils 3 % (0-10); Lymphocytes 32 % (20-55); Segmented Neutrophils 45 % (50-85); Total Cells Counted 100
[2021-01-25 15:46] LABS: Hypochromia 2+; Microcytosis 1+; Platelet Estimate Decreased
[2021-01-25 16:00] LABS: Folate 15.76 NG/ML (5.38-24.0); Vitamin B12 723 PG/ML (211-911)
[2021-01-25] MEDS ORDERED: GLUCAGON 1 MG VIAL IM PRN ×2 (16:19→16:26)
[2021-01-25] MEDS ORDERED: DEXTROSE 50% 25 GM/50 ML VIAL IV PRN (16:19)
[2021-01-25] MEDS ORDERED: busPIRone 10 MG TABLET PO PRN (16:20)
[2021-01-25] MEDS ORDERED: CALCIUM CARBONATE CHEW 500 MG TABLET PO PRN (16:26)
[2021-01-25] MEDS ORDERED: SIMETHICONE CHEW 125 MG TABLET PO PRN (16:26)
[2021-01-25] MEDS ORDERED: ACETAMINOPHEN 325 MG TABLET PO PRN (16:26)
[2021-01-25] MEDS ORDERED: DOCUSATE SODIUM 100 MG CAPSULE PO PRN (16:26)
[2021-01-25] MEDS ORDERED: DEXTROSE 50% 25 GM/50 ML SYRINGE IV PRN (16:26)
[2021-01-25] MEDS ORDERED: SODIUM CHLORIDE 0.9% 1,000 ML IV PRN (16:29)
[2021-01-25] MEDS ORDERED: FUROSEMIDE 20 MG/2 ML VIAL IV PRN (16:29)
[2021-01-25 16:40] LABS: Basophils % 0.7 % (0.0-0.8); Eosinophils # 0.1 10*3/uL (0.0-0.87); Eosinophils % 3.6 % (0.00-10.9); Hematocrit 20.5 VOL% (35.7-47.0); Immature Granulocytes % 0.4 %; Immature Granulocytes Absolute 0.01 #; Lymphocytes # 0.9 10*3/uL (1.4-4.0); Lymphocytes % 33.6 % (21.3-54.2); Mean Corpuscular HGB Conc 28.3 GM/DL (32-36); Mean Corpuscular Volume 77.4 FL (87-102); Mean Platelet Volume 12.4 FL (9.6-12.0); Monocytes % 16.6 % (1.7-12.7); Neutrophils % 45.1 % (38.7-73.9); Platelet Count 102 T/CUMM (130-400); Red Blood Count 2.65 MC/CUMM (3.8-5.5); Red Cell Distribution Width 16.7 % (9.3-17.3); White Blood Count 2.8 T/CUMM (4-12)
[2021-01-25 16:43] LABS: Hemoglobin 5.8 GM/DL (12.0-16.0)
[2021-01-25 16:47] LABS: Band Neutrophils 3 % (0-10); Eosinophils 3 % (0-10); Lymphocytes 32 % (20-55); Segmented Neutrophils 45 % (50-85); Total Cells Counted 100
[2021-01-25 16:48] LABS: Hypochromia 2+; Microcytosis 1+
[2021-01-25 17:09] LABS: % Iron Saturation 3.3 % (18-50)
[2021-01-25 17:48] LABS: Sedimentation Rate-Westergren 100 MM/HR (0-30)
[2021-01-25] MEDS: LACTATED RINGERS 1,000 ML IV SCH (17:50)
[2021-01-25 18:03] LABS: Platelet Estimate Decreased
[2021-01-25] MEDS: INSULIN LISPRO 100 UNIT/ML SUBCUT SCH ×2 (18:19→21:34)
[2021-01-25] MEDS: FENOFIBRATE 145 MG TABLET PO SCH (21:31)
[2021-01-25] MEDS: ROSUVASTATIN 20 MG TABLET PO SCH (21:31)
[2021-01-25] MEDS: carvediloL 12.5 MG TABLET PO SCH (21:32)
[2021-01-25] MEDS: PREGABALIN 75 MG CAPSULE PO SCH (21:32)
[2021-01-25] MEDS: PANTOPRAZOLE 40 MG TABLET PO SCH (21:32)
[2021-01-25] MEDS: LOSARTAN 25 MG TABLET PO SCH (21:33)
[2021-01-25] MEDS: FLUTICASONE/SALMETEROL 250-50 DISKUS 14 DOSE INH SCH (21:38)
[2021-01-26] MEDS: LACTATED RINGERS 1,000 ML IV SCH ×2 (02:47→13:34)
[2021-01-26 04:32] LABS: Basophils % 0.8 % (0.0-0.8); Eosinophils # 0.2 10*3/uL (0.0-0.87); Eosinophils % 5.2 % (0.00-10.9); Hematocrit 29.3 VOL% (35.7-47.0); Immature Granulocytes % 0.3 %; Immature Granulocytes Absolute 0.01 #; Lymphocytes # 1.1 10*3/uL (1.4-4.0); Lymphocytes % 29.6 % (21.3-54.2); Mean Corpuscular HGB Conc 29.7 GM/DL (32-36); Mean Corpuscular Volume 80.1 FL (87-102); Mean Platelet Volume 11.9 FL (9.6-12.0); Monocytes % 15.3 % (1.7-12.7); Neutrophils % 48.8 % (38.7-73.9)
[2021-01-26 04:33] LABS: Red Blood Count 3.66 MC/CUMM (3.8-5.5); White Blood Count 3.7 T/CUMM (4-12)
[2021-01-26 04:34] LABS: Hemoglobin 8.7 GM/DL (12.0-16.0)
[2021-01-26 04:38] LABS: Platelet Count 94 T/CUMM (130-400)
[2021-01-26 04:57] LABS: Albumin 2.6 G/DL (3.4-5.0); Bilirubin,Total 1.8 MG/DL (0.20-1.00); Calcium 7.8 MG/DL (8.5-10.1); Osmolality,Calculated 277.5 MOS/KG (273-304); Potassium 3.7 MMOL/L (3.5-5.1); Risk Ratio 2.85; Total Protein 6.9 G/DL (6.4-8.2); VLDL Cholesterol 15.6 MG/DL
[2021-01-26 05:05] LABS: Hypochromia Slight; Platelet Estimate Decreased
[2021-01-26] MEDS: carvediloL 12.5 MG TABLET PO SCH ×2 (08:43→20:15)
[2021-01-26] MEDS: DULoxetine 30 MG CAPSULE PO SCH (08:43)
[2021-01-26] MEDS: PANTOPRAZOLE 40 MG TABLET PO SCH ×2 (08:43→20:15)
[2021-01-26] MEDS: PREGABALIN 75 MG CAPSULE PO SCH ×3 (08:43→20:15)
[2021-01-26] MEDS: INSULIN LISPRO 100 UNIT/ML SUBCUT SCH ×4 (08:48→21:01)
[2021-01-26] MEDS ORDERED: IRON DEXTRAN 25 MG in SYRINGE 1 EACH IV ONE ×2 (08:56→13:00)
[2021-01-26] MEDS ORDERED: ACETAMINOPHEN 500 MG TABLET PO ONE (08:56)
[2021-01-26] MEDS ORDERED: diphenhydrAMINE 50 MG/1 ML VIAL IV ONE (08:57)
[2021-01-26] MEDS ORDERED: FAMOTIDINE INJ 40 MG in SODIUM CHLORIDE 0.9% 100 ML IV ONE (08:58)
[2021-01-26] MEDS ORDERED: IRON DEXTRAN 1,500 MG in SODIUM CHLORIDE 0.9% 500 ML IV ONE (08:58)
[2021-01-26] MEDS ORDERED: DEXAMETHASONE 10 MG/1 ML VIAL IV ONE (08:58)
[2021-01-26] MEDS: FLUTICASONE/SALMETEROL 250-50 DISKUS 14 DOSE INH SCH ×2 (17:28→21:03)
[2021-01-26] MEDS: ROSUVASTATIN 20 MG TABLET PO SCH (20:15)
[2021-01-26] MEDS: FENOFIBRATE 145 MG TABLET PO SCH (20:15)
[2021-01-26] MEDS: FUROSEMIDE 40 MG TABLET PO SCH (20:16)
[2021-01-26] MEDS: LOSARTAN 25 MG TABLET PO SCH (20:16)
[2021-01-27 05:49] LABS: Hematocrit 29.3 VOL% (35.7-47.0); Immature Granulocytes % 0.7 %; Immature Granulocytes Absolute 0.03 #; Lymphocytes # 0.6 10*3/uL (1.4-4.0); Mean Corpuscular HGB Conc 30.7 GM/DL (32-36); Mean Corpuscular Volume 78.8 FL (87-102); Mean Platelet Volume 12.5 FL (9.6-12.0); Monocytes % 6.3 % (1.7-12.7); Platelet Count 101 T/CUMM (130-400); Red Blood Count 3.72 MC/CUMM (3.8-5.5); Red Cell Distribution Width 16.6 % (9.3-17.3); White Blood Count 4.1 T/CUMM (4-12)
[2021-01-27] MEDS: LACTATED RINGERS 1,000 ML IV SCH (06:17)
[2021-01-27] MEDS: DULoxetine 30 MG CAPSULE PO SCH (08:40)
[2021-01-27] MEDS: FUROSEMIDE 40 MG TABLET PO SCH (08:41)
[2021-01-27] MEDS: PREGABALIN 75 MG CAPSULE PO SCH ×3 (08:41→20:04)
[2021-01-27] MEDS: carvediloL 12.5 MG TABLET PO SCH ×2 (08:41→20:04)
[2021-01-27] MEDS: PANTOPRAZOLE 40 MG TABLET PO SCH ×2 (08:41→20:04)
[2021-01-27] MEDS: FLUTICASONE/SALMETEROL 250-50 DISKUS 14 DOSE INH SCH ×2 (08:42→20:05)
[2021-01-27] MEDS: INSULIN LISPRO 100 UNIT/ML SUBCUT SCH ×4 (08:47→21:17)
[2021-01-27 10:03] LABS: Hemoglobin A1 (Alkaline) 96.7 % (96.5-98.5); Hemoglobin A2 (Alkaline) 3.3 % (1.5-3.5)
[2021-01-27] MEDS: POLYETHYLENE GLYCOL POWDER 17 GM PACK PO SCH (12:20)
[2021-01-27] MEDS: FUROSEMIDE 40 MG/4 ML VIAL IV SCH (16:01)
[2021-01-27] MEDS: LOSARTAN 25 MG TABLET PO SCH (20:04)
[2021-01-27] MEDS: FENOFIBRATE 145 MG TABLET PO SCH (20:04)
[2021-01-27] MEDS: ROSUVASTATIN 20 MG TABLET PO SCH (20:04)
[2021-01-27] MEDS: ALBUTEROL 1.25 MG/3 ML NEB RESP TX SCH (20:05)
[2021-01-27] MEDS ORDERED: INSULIN GLARGINE 100 UNIT/ML SUBCUT SCH (21:00)
[2021-01-27] MEDS: INSULIN GLARGINE 100 UNIT/ML SUBCUT SCH (21:18)
[2021-01-28] MEDS: ALBUTEROL 1.25 MG/3 ML NEB RESP TX SCH ×6 (00:14→19:06)
[2021-01-28 06:15] LABS: Basophils % 0.1 % (0.0-0.8); Eosinophils % 0.2 % (0.00-10.9); Hematocrit 30.6 VOL% (35.7-47.0); Hemoglobin 9.1 GM/DL (12.0-16.0); Immature Granulocytes % 0.6 %; Immature Granulocytes Absolute 0.05 #; Lymphocytes # 1.1 10*3/uL (1.4-4.0); Lymphocytes % 12.6 % (21.3-54.2); Mean Corpuscular HGB Conc 29.7 GM/DL (32-36); NRBC # 0.03 10*3/uL; Neutrophils % 78.5 % (38.7-73.9); Platelet Count 97 T/CUMM (130-400); Red Blood Count 3.78 MC/CUMM (3.8-5.5); Red Cell Distribution Width 17.5 % (9.3-17.3); White Blood Count 8.5 T/CUMM (4-12)
[2021-01-28 06:30] LABS: Calcium 8.5 MG/DL (8.5-10.1); Osmolality,Calculated 280.5 MOS/KG (273-304); Potassium 3.9 MMOL/L (3.5-5.1)
[2021-01-28] MEDS: INSULIN LISPRO 100 UNIT/ML SUBCUT SCH ×4 (07:25→21:18)
[2021-01-28] MEDS ORDERED: LACTATED RINGERS 1,000 ML IV SCH (08:00)
[2021-01-28] MEDS ORDERED: propofoL 200 MG/20 ML VIAL IV ONE (08:40)
[2021-01-28] MEDS ORDERED: LIDOCAINE 2% 5 ML VIAL ONE (08:40)
[2021-01-28] MEDS ORDERED: ETOMIDATE 40 MG/20 ML VIAL IV ONE (08:40)
[2021-01-28] MEDS ORDERED: GLUCAGON 1 MG VIAL IM PRN (11:58)
[2021-01-28] MEDS ORDERED: DEXTROSE 50% 25 GM/50 ML SYRINGE IV PRN (12:00)
[2021-01-28] MEDS: POLYETHYLENE GLYCOL POWDER 17 GM PACK PO SCH (12:32)
[2021-01-28] MEDS: FUROSEMIDE 40 MG/4 ML VIAL IV SCH (12:34)
[2021-01-28] MEDS: carvediloL 12.5 MG TABLET PO SCH ×2 (12:34→21:17)
[2021-01-28] MEDS: DULoxetine 30 MG CAPSULE PO SCH (12:34)
[2021-01-28] MEDS: PANTOPRAZOLE 40 MG TABLET PO SCH ×2 (12:34→21:17)
[2021-01-28] MEDS: PREGABALIN 75 MG CAPSULE PO SCH ×3 (12:34→21:19)
[2021-01-28] MEDS: FLUTICASONE/SALMETEROL 250-50 DISKUS 14 DOSE INH SCH ×2 (12:35→21:22)
[2021-01-28] MEDS ORDERED: cefTRIAXone 1,000 MG in SYRINGE 1 EACH IV SCH (17:30)
[2021-01-28] MEDS: DOXYCYCLINE HYCLATE INJ 100 MG in SODIUM CHLORIDE 0.9% 100 ML IV SCH (19:48)
[2021-01-28] MEDS: cefTRIAXone 1,000 MG in SODIUM CHLORIDE 0.9% 100 ML IV SCH (19:48)
[2021-01-28] MEDS: FENOFIBRATE 145 MG TABLET PO SCH (21:17)
[2021-01-28] MEDS: ROSUVASTATIN 20 MG TABLET PO SCH (21:17)
[2021-01-28] MEDS: LOSARTAN 25 MG TABLET PO SCH (21:17)
[2021-01-28] MEDS: INSULIN GLARGINE 100 UNIT/ML SUBCUT SCH (21:18)
[2021-01-29] MEDS: ALBUTEROL 1.25 MG/3 ML NEB RESP TX SCH ×6 (00:07→20:46)
[2021-01-29 06:31] LABS: Basophils % 0.3 % (0.0-0.8); Eosinophils # 0.1 10*3/uL (0.0-0.87); Eosinophils % 2.4 % (0.00-10.9); Hematocrit 28.7 VOL% (35.7-47.0); Hemoglobin 8.5 GM/DL (12.0-16.0); Immature Granulocytes % 0.7 %; Immature Granulocytes Absolute 0.04 #; Lymphocytes # 1.5 10*3/uL (1.4-4.0); Lymphocytes % 25.3 % (21.3-54.2); Mean Corpuscular HGB Conc 29.6 GM/DL (32-36); Mean Corpuscular Volume 81.3 FL (87-102); Monocytes % 11.6 % (1.7-12.7); Neutrophils % 59.7 % (38.7-73.9); Platelet Count 99 T/CUMM (130-400); Red Blood Count 3.53 MC/CUMM (3.8-5.5); Red Cell Distribution Width 19.2 % (9.3-17.3); White Blood Count 5.9 T/CUMM (4-12)
[2021-01-29] MEDS: DOXYCYCLINE HYCLATE INJ 100 MG in SODIUM CHLORIDE 0.9% 100 ML IV SCH ×2 (06:35→17:48)
[2021-01-29 06:56] LABS: Osmolality,Calculated 282.4 MOS/KG (273-304); Potassium 3.7 MMOL/L (3.5-5.1)
[2021-01-29 07:02] LABS: Hypochromia 1+; Microcytosis 1+; Platelet Estimate Decreased
[2021-01-29 07:40] LABS: Albumin 2.6 G/DL (3.4-5.0); Bilirubin,Direct 0.27 MG/DL (0.0-0.20); Bilirubin,Indirect 0.5 MG/DL (0.0-1.0); Bilirubin,Total 0.8 MG/DL (0.20-1.00); Total Protein 6.8 G/DL (6.4-8.2)
[2021-01-29] MEDS: INSULIN LISPRO 100 UNIT/ML SUBCUT SCH ×4 (08:40→22:06)
[2021-01-29] MEDS: PANTOPRAZOLE 40 MG TABLET PO SCH ×2 (09:59→20:59)
[2021-01-29] MEDS: DULoxetine 30 MG CAPSULE PO SCH (09:59)
[2021-01-29] MEDS: PREGABALIN 75 MG CAPSULE PO SCH ×3 (09:59→20:59)
[2021-01-29] MEDS: carvediloL 12.5 MG TABLET PO SCH ×2 (09:59→20:58)
[2021-01-29] MEDS: POLYETHYLENE GLYCOL POWDER 17 GM PACK PO SCH (10:00)
[2021-01-29] MEDS: FUROSEMIDE 40 MG/4 ML VIAL IV SCH ×2 (10:00→16:32)
[2021-01-29] MEDS: FLUTICASONE/SALMETEROL 250-50 DISKUS 14 DOSE INH SCH ×2 (10:00→21:00)
[2021-01-29] MEDS: cefTRIAXone 1,000 MG in SODIUM CHLORIDE 0.9% 100 ML IV SCH (16:34)
[2021-01-29] MEDS: LOSARTAN 25 MG TABLET PO SCH (20:58)
[2021-01-29] MEDS: FENOFIBRATE 145 MG TABLET PO SCH (20:58)
[2021-01-29] MEDS: INSULIN GLARGINE 100 UNIT/ML SUBCUT SCH (20:59)
[2021-01-29] MEDS: ROSUVASTATIN 20 MG TABLET PO SCH (20:59)
[2021-01-30] MEDS: ALBUTEROL 1.25 MG/3 ML NEB RESP TX SCH ×6 (00:51→20:20)
[2021-01-30 05:37] LABS: Basophils % 0.3 % (0.0-0.8); Eosinophils # 0.3 10*3/uL (0.0-0.87); Eosinophils % 7.1 % (0.00-10.9); Hematocrit 31.9 VOL% (35.7-47.0); Hemoglobin 9.5 GM/DL (12.0-16.0); Immature Granulocytes % 0.8 %; Immature Granulocytes Absolute 0.03 #; Lymphocytes % 25.6 % (21.3-54.2); Mean Corpuscular HGB Conc 29.8 GM/DL (32-36); Monocytes % 12.9 % (1.7-12.7); Neutrophils % 53.3 % (38.7-73.9); Platelet Count 104 T/CUMM (130-400); Red Blood Count 3.89 MC/CUMM (3.8-5.5); Red Cell Distribution Width 20.3 % (9.3-17.3)
[2021-01-30 05:57] LABS: Calcium 8.8 MG/DL (8.5-10.1); Osmolality,Calculated 279.5 MOS/KG (273-304); Potassium 3.7 MMOL/L (3.5-5.1)
[2021-01-30 06:22] LABS: Anisocytosis 1+; Hypochromia 1+; Microcytosis 1+; Ovalocytes Slight; Polychromasia Slight
[2021-01-30 06:23] LABS: Platelet Estimate Decreased
[2021-01-30] MEDS: DOXYCYCLINE HYCLATE INJ 100 MG in SODIUM CHLORIDE 0.9% 100 ML IV SCH ×2 (06:32→18:26)
[2021-01-30] MEDS ORDERED: ERGOCALCIFEROL 50,000 UNIT CAPSULE PO SCH (09:00)
[2021-01-30] MEDS: PANTOPRAZOLE 40 MG TABLET PO SCH ×2 (10:59→20:41)
[2021-01-30] MEDS: carvediloL 12.5 MG TABLET PO SCH ×2 (10:59→20:41)
[2021-01-30] MEDS: DULoxetine 30 MG CAPSULE PO SCH (10:59)
[2021-01-30] MEDS: FLUTICASONE/SALMETEROL 250-50 DISKUS 14 DOSE INH SCH ×2 (11:00→20:44)
[2021-01-30] MEDS: FUROSEMIDE 40 MG/4 ML VIAL IV SCH ×2 (11:00→16:53)
[2021-01-30] MEDS: POLYETHYLENE GLYCOL POWDER 17 GM PACK PO SCH (11:00)
[2021-01-30] MEDS: PREGABALIN 75 MG CAPSULE PO SCH ×3 (11:04→20:41)
[2021-01-30] MEDS: INSULIN LISPRO 100 UNIT/ML SUBCUT SCH ×4 (11:12→22:23)
[2021-01-30] MEDS ORDERED: POLYETHYLENE GLYCOL POWDER 255 GM BOTTLE PO ONE (11:21)
[2021-01-30] MEDS ORDERED: BISACODYL 5 MG TABLET PO ONE (13:01)
[2021-01-30] MEDS: cefTRIAXone 1,000 MG in SODIUM CHLORIDE 0.9% 100 ML IV SCH (16:53)
[2021-01-30] MEDS: ONDANSETRON 4 MG/2 ML VIAL IV PRN ×2 (17:55→21:58)
[2021-01-30] MEDS: FENOFIBRATE 145 MG TABLET PO SCH (20:40)
[2021-01-30] MEDS: ROSUVASTATIN 20 MG TABLET PO SCH (20:41)
[2021-01-30] MEDS: LOSARTAN 25 MG TABLET PO SCH (20:41)
[2021-01-30] MEDS: INSULIN GLARGINE 100 UNIT/ML SUBCUT SCH (22:26)
[2021-01-31] MEDS: ALBUTEROL 1.25 MG/3 ML NEB RESP TX SCH ×4 (01:23→11:09)
[2021-01-31] MEDS ORDERED: BISACODYL 5 MG TABLET PO ONE (05:00)
[2021-01-31] MEDS: DOXYCYCLINE HYCLATE INJ 100 MG in SODIUM CHLORIDE 0.9% 100 ML IV SCH (05:15)
[2021-01-31] MEDS ORDERED: LACTATED RINGERS 1,000 ML IV SCH (07:00)
[2021-01-31] MEDS ORDERED: LIDOCAINE 2% 5 ML VIAL ONE (07:45)
[2021-01-31] MEDS ORDERED: ETOMIDATE 20 MG/10 ML VIAL IV ONE (07:45)
[2021-01-31] MEDS ORDERED: propofoL 200 MG/20 ML VIAL IV ONE (07:45)
[2021-01-31] MEDS ORDERED: ALBUTEROL INHALER 18 GM INH ONE (07:49)
[2021-01-31 07:57] LABS: Basophils % 0.4 % (0.0-0.8); Eosinophils # 0.2 10*3/uL (0.0-0.87); Eosinophils % 3.4 % (0.00-10.9); Hematocrit 39.6 VOL% (35.7-47.0); Hemoglobin 11.9 GM/DL (12.0-16.0); Immature Granulocytes % 0.6 %; Immature Granulocytes Absolute 0.03 #; Lymphocytes # 0.9 10*3/uL (1.4-4.0); Lymphocytes % 18.4 % (21.3-54.2); Mean Corpuscular HGB Conc 30.1 GM/DL (32-36); Mean Corpuscular Volume 82.8 FL (87-102); Monocytes % 10.1 % (1.7-12.7); Neutrophils % 67.1 % (38.7-73.9); Platelet Count 120 T/CUMM (130-400); Red Blood Count 4.78 MC/CUMM (3.8-5.5); Red Cell Distribution Width 21.8 % (9.3-17.3); White Blood Count 5.1 T/CUMM (4-12)
[2021-01-31 08:19] LABS: Calcium 9.1 MG/DL (8.5-10.1); Potassium 3.8 MMOL/L (3.5-5.1)
[2021-01-31] MEDS ORDERED: PHENYLEPHRINE 1 MG/10 ML SYRINGE IV ONE (08:28)
[2021-01-31 08:49] LABS: Anisocytosis 2+; Band Neutrophils 4 % (0-10); Eosinophils 3 % (0-10); Lymphocytes 21 % (20-55); Macrocytosis Slight; Metamyelocytes 1 %; Platelet Estimate Adequate; Segmented Neutrophils 63 % (50-85); Spherocytes Few; Total Cells Counted 100
[2021-01-31] MEDS: DULoxetine 30 MG CAPSULE PO SCH (09:44)
[2021-01-31] MEDS: FUROSEMIDE 40 MG/4 ML VIAL IV SCH (09:44)
[2021-01-31] MEDS: PANTOPRAZOLE 40 MG TABLET PO SCH (09:44)
[2021-01-31] MEDS: carvediloL 12.5 MG TABLET PO SCH (09:44)
[2021-01-31] MEDS: PREGABALIN 75 MG CAPSULE PO SCH ×2 (09:45→14:00)
[2021-01-31] MEDS: FLUTICASONE/SALMETEROL 250-50 DISKUS 14 DOSE INH SCH (09:45)
[2021-01-31] MEDS: POLYETHYLENE GLYCOL POWDER 17 GM PACK PO SCH (09:56)
[2021-01-31] MEDS: INSULIN LISPRO 100 UNIT/ML SUBCUT SCH ×2 (09:56→12:51)
[2021-01-31 16:01] VITALS: BP 117/48
== END 2021-01-31 15:57 | disposition home or self-care (01) | DRG 808 ==
LOC: N.ED 11:51 → SUATTDRO 16:19 → N.2E 16:19 → N.TELES 01-26 17:52
PROVIDERS: ADMIT Internal Medicine; ATTEND Internal Medicine